=== PATIENT | female | born 1955 | race African-American/Black ===

== ENCOUNTER 2020-04-09 11:25 | Inpatient (IN) | payer MEDICARE, MEDICAID, SELFPAY ==
[2020-04-09] VITALS (10 sets, daily range): BP systolic 121–181; BP diastolic 60–72; PULSE 83–106; RESP 14–22; TEMP 36.3–36.8; O2SAT 97–100; BMI 18.7
--- NOTE | ~2020-04-09 | XR_ITS ---
XR chest 2V 04/14/2020 08:27 Indication: Pneumonia Procedure: AP and lateral views of the chest Comparison: 04/12/2020 Findings: Patchy bilateral airspace disease. Small pleural effusions. Large bore central venous ely ter tip in SVC. The lungs are hyperinflated which is consistent with, but not diagnostic of chronic o bstructive pulmonary disease. There is atherosclerosis. Impression: 1: Patchy bilateral airspace disease, compatible with pneumonia. 2: Small pleural effusions. Reviewed, dictated and finalized at location A. STANT READING TEACHER Impression: 1: Patchy bilateral airspace disease, compatible with pneumonia. 2: Small pleural effusions.
--- NOTE | ~2020-04-09 | NM_ITS ---
EXAMINATION: NM pulmonary perfusion DATE: 04/10/2020 11:26 INDICATION: Chest pain TECHNIQUE: 5.5 mCi Tc-99m MAA was administered intravenously for perfusion images. Scintigraphic imag es of the chest were obtained. COMPARISON: None FINDINGS: Perfusion images show normal perfusion. IMPRESSION: 1. Low probability for pulmonary embolism. Reviewed, dictated and finalized at location A. ESSOR OF FINE ART
--- NOTE | ~2020-04-09 | XR_ITS ---
XR chest 2V DATE: 04/12/2020 09:13 INDICATION: Pneumonia. Chest pain. TECHNIQUE: AP and lateral views COMPARISON: April 09, 2020 portable AP chest at 1234 hours FINDINGS: Right internal jugular central venous catheter tip near superior cavoatrial junction. Heart size within normal limits. Aortic arch calcification. There are infiltrates and/atelectasis in the lower lung zones, left greater than right. No pleural effusion or pulmonary vascular congestion or pneumothorax is evident. IMPRESSION: Bilateral infiltrate and/or atelectasis in the lower lung zones, left greater than right Reviewed, dictated and finalized at location A. MODYNAMICS TEACHER IMPRESSION: Bilateral infiltrate and/or atelectasis in the lower lung zones, le ft greater than right
--- NOTE | ~2020-04-09 | XR_ITS ---
EXAMINATION: XR chest 1V portable INDICATION: Chest pain TECHNIQUE: Portable AP chest at 1234 hours COMPARISON: None available FINDINGS: There is a large bore right internal jugular catheter ending with its tip at the superior c avoatrial junction. The cardiomediastinal silhouette is normal. There is mild diffuse interstitial pa ttern. Small pleural effusions are suggested. No pneumothorax is identified. There is calcified ather osclerosis. Minimal airspace opacities are present in the lung bases. IMPRESSION: 1. Likely mild pulmonary edema. 2. Small pleural effusions. 3. Minimal bibasilar airspace opacities, likely atelectasis. Reviewed, dictated and finalized at location A. TH PHYSICS TECHNICIAN
--- NOTE | ~2020-04-09 | US_ITS ---
EXAMINATION: US abdomen limited DATE: 04/11/2020 10:47 INDICATION: Pancreatitis TECHNIQUE: Multiple grayscale and Doppler ultrasound images of the abdomen were obtained. COMPARISON: None FINDINGS: Pancreas is normal in appearance. Liver has normal echogenicity and contour, with a smooth surface. N o liver lesion identified. No intrahepatic biliary duct dilation suspected. Portal venous flow was se en in the hepatopetal, normal direction and has normal Doppler waveform. The gallbladder is normal in appearance. There is no cholelithiasis. The common bile duct measures 6 mm, which is normal in whic h tapers distally. The pancreas with no evident obstructing choledocholithiasis. Sonographic García s ign was reported as negative by the beauty parlor cleaner. There is increased echogenicity within the visualize d right kidney consistent with medical renal disease. No hydronephrosis. Visualized proximal to mid i nferior vena cava is normal. Atherosclerotic calcifications along the visualized normal caliber proxi mal abdominal aorta. Small amount of ascites in the right upper quadrant. IMPRESSION: 1. Small amount of ascites in the right upper quadrant. 2. Increased right renal cortical echogenicity consistent with medical renal disease. Reviewed, dictated and finalized at location A. NING SPECIALIST IMPRESSION: 1. Small amount of ascites in the right upper quadrant. 2. Increased right renal cortical echogenicity consistent with medical renal di sease.
--- NOTE | ~2020-04-09 | US_ITS ---
EXAMINATION: US venous doppler [facility] DATE: 04/10/2020 11:54 INDICATION: Chest pain TECHNIQUE: Ordaz scale images without and with compression and Doppler images of the bilateral lower e xtremity veins were obtained. COMPARISON: None FINDINGS: The right common femoral vein, profunda femoral vein, femoral vein, popliteal vein, peroneal trunk, p osterior tibial veins, and greater saphenous vein are patent. The left common femoral vein, profunda femoral vein, femoral vein, popliteal vein, peroneal trunk, po sterior tibial veins, and greater saphenous vein are patent. IMPRESSION: 1. Patent bilateral lower extremity veins. No evidence of deep venous thrombosis. Reviewed, dictated and finalized at location A. ATIONS MANAGER IMPRESSION: 1. Patent bilateral lower extremity veins. No evidence of deep venous thrombosi s.
--- NOTE | 2020-04-09 11:35 | ECG_ITS ---
Measurements Intervals [place] Rate: 94 P: 90 [place]: 139 QRS: 70 QRSD: 76 T: 91 QT: 380 QTc: 476 Interpretive Statements SINUS RHYTHM BORDERLINE ST-T WAVE ABNORMALITY- HIGH LATERAL LEADS BASELINE WANDER- I, II, AVR, AVL BORDERLINE ECG Electronically Signed On 04-09-2020 11:52:22 BROKERAGE COORDINATOR by Pineda Worthington D.O.
--- NOTE | 2020-04-09 11:43 | ED.GENADULT ---
HPI - General Adult General Chief complaint: Chest Pain Stated complaint: CP/SOB Time Seen by Provider: 04/09/20 11:39 History of Present Illness HPI narrative: Patient is a 64-year-old female who presents the emergency department with chief complaint of chest pain. The patient reports that she was undergoing dialysis today and while the dialysis machine was running she started to get tightness feeling in her mid chest. Patient states this is the second time she has had dialysis reports that she was recently discharged from the hospital. The patient states that she had no shortness of breath denies diaphoresis denies radiation of the pain. Related Data Home Medications Medication Instructions Recorded Confirmed acetaminophen 325 mg PO ONCE PRN 04/09/20 04/09/20 amlodipine 10 mg PO DAILY 04/09/20 04/09/20 atorvastatin 40 mg PO DAILY 04/09/20 04/09/20 gabapentin 100 mg PO HS 04/09/20 04/09/20 hydralazine 50 mg PO TID 04/09/20 04/09/20 insulin lispro 3 unit SUBCUT DAILY 04/09/20 04/09/20 lidocaine 1 applic TOPICAL BID 04/09/20 04/09/20 lisinopril 20 mg PO BID 04/09/20 04/09/20 nitroglycerin 1 patch TRANSDERMAL DAILY 04/09/20 04/09/20 vancomycin 125 mg PO Q6H 04/09/20 04/09/20 Allergies Allergy/AdvReac Type Severity Reaction Status Date / Time No Known Allergies Allergy Verified 04/09/20 12:05 Review of Systems Review of Systems: Narrative: A 10 system review of systems was completed on the patient and is negative except for what is stated in the HPI. Nursing and ancillary documentation was reviewed. PMFSH Comments Past medical history is significant for end-stage renal on dialysis Social history the patient is currently at a nursing facility Exam Narrative: Exam Narrative: GENERAL: Well-appearing, well-nourished, and in no acute distress. HEAD: Normocephalic, atraumatic. EYES: PERRLA and EOMI. ENT: Nares clear, no rhinorrhea or epistaxis. Mucous membranes moist. NECK: Supple. CHEST: Clear to auscultation. No respiratory distress. Patient has a right sided tunneled IJ dialysis catheter HEART: Regular rate and rhythm. No murmur heard. Normal peripheral pulses. ABDOMEN: Soft, nontender, nondistended, normal active bowel sounds. EXTREMITIES: Normal range of motion. No edema. Patient has multiple fingertips that are black and consistent with prior embolic events. SKIN: Warm, dry, no rash. NEURO: No focal deficits. Alert and oriented x3. PSYCH: Normal mood and affect. Course Vital Signs Vital signs: Vital Signs Temperature 36.6 C 04/09/20 11:49 Pulse Rate 97 04/09/20 11:49 Respiratory Rate 22 H 04/09/20 11:49 Blood Pressure 181/68 H 04/09/20 11:49 Pulse Oximetry 97 04/09/20 11:49 Temperature 36.6 C 04/09/20 11:49 Pulse Rate 97 04/09/20 11:49 Respiratory Rate 22 H 04/09/20 11:49 Blood Pressure 181/68 H 04/09/20 11:49 Pulse Oximetry 97 04/09/20 11:49 Medical Decision Making Vital Signs Vital Signs: Vital Signs Temperature 36.6 C 04/09/20 11:49 Pulse Rate 97 04/09/20 11:49 Respiratory Rate 22 H 04/09/20 11:49 Blood Pressure 181/68 H 04/09/20 11:49 Pulse Oximetry 97 04/09/20 11:49 Temperature 36.6 C 04/09/20 11:49 Pulse Rate 97 04/09/20 11:49 Respiratory Rate 22 H 04/09/20 11:49 Blood Pressure 181/68 H 04/09/20 11:49 Pulse Oximetry 97 04/09/20 11:49 Lab Data Result diagrams: 04/09/20 11:55 04/09/20 11:55 Labs: Lab Results 04/09/20 04/09/20 04/09/20 Range/Units 11:55 11:55 11:55 WBC 16.3 H (4.5-10.0) K/mm3 RBC 3.37 L (4.2-5.4) M/mm3 Hgb 9.8 L (12.0-15.0) g/dL Hct 29.6 L (37.0-47.0) % MCV 87.8 (80-100) fl MCH 29.1 (26-34) pg MCHC 33.1 (32-36) g/dl RDW 19.8 H (11.5-14.5) % Plt Count 403 H (150-375) k/mm3 MPV 10.7 H (7.4-10.4) fl Immature Gran % (Auto) 1.5 H (0-0.5) % Neut % (Auto) 79.4 H (45.5-73.1) % Lymph % (Auto) 6.8 L (18
[2020-04-09 12:01] LABS: Basophils Absolute Auto 0.1 K/mm3 (0.0-0.1); Basophils Percent Auto 0.4 % (0.2-1.2); Eosinophils Absolute Auto 0.1 K/mm3 (0-0.3); Eosinophils Percent Auto 0.6 % (0-4.4); Hematocrit 29.6 % (37.0-47.0); Hemoglobin 9.8 g/dL (12.0-15.0); Immature Granulocyte Absolute 0.25 K/mm3 (0.00-0.031); Immature Granulocyte Percent A 1.5 % (0-0.5); Lymphocytes Percent Auto 6.8 % (18.3-44.2); Mean Corpuscular HGB Conc 33.1 g/dl (32-36); Mean Corpuscular Hemoglobin 29.1 pg (26-34); Mean Corpuscular Volume 87.8 fl (80-100); Mean Platelet Volume 10.7 fl (7.4-10.4); Monocytes Absolute Auto 1.8 K/mm3 (0.1-0.6); Monocytes Percent Auto 11.3 % (2.6-8.5); Neutrophils Absolute Auto 12.9 K/mm3 (1.3-6.7); Neutrophils Percent Auto 79.4 % (45.5-73.1); Platelet Count Result 403 k/mm3 (150-375); Red Blood Count 3.37 M/mm3 (4.2-5.4); Red Cell Distribution Width 19.8 % (11.5-14.5); White Blood Count 16.3 K/mm3 (4.5-10.0)
[2020-04-09 12:11] LABS: INR 0.9; Partial Thromboplastin Time 28.7 SECONDS (22.3-36.8); Prothrombin Time 12.2 Seconds (11.1-14.7)
[2020-04-09 12:14] LABS: Alanine Aminotransferase 37 U/L (4-35); Albumin Level 2.8 g/dL (3.5-5.1); Alkaline Phosphatase 490 U/L (38-126); Anion Gap 5 mmol/L (8-16); Aspartate Amino Transferase 63 U/L (14-36); Bilirubin,Total 0.5 mg/dL (0.2-1.3); Blood Urea Nitrogen 18 mg/dL (7-17); Calcium 8.2 mg/dL (8.4-10.2); Carbon Dioxide 28 mmol/L (22-30); Chloride 103 mmol/L (98-107); Estimated CRCL calculation 16 ml/min; Estimated Glomerular Filt Rate 25; Glucose 344 mg/dL (65-105); Lipase 405 U/L (23-300); Potassium 3.4 mmol/L (3.4-5.0); Sodium 136 mmol/L (137-145)
[2020-04-09] MEDS: ONDANSETRON INJ 4 MG/2 ML VIAL IV PUSH (12:17)
[2020-04-09] MEDS: MORPHINE SULFATE (*CRX) 4 MG/ML INJ IV PUSH (12:18)
[2020-04-09] MEDS: NITROGLYCERIN SL 0.4 MG TABLET SUBLINGUAL (12:19)
[2020-04-09 12:26] LABS: Troponin I 0.013 ng/mL (0.000-0.034)
[2020-04-09 12:35] LABS: Lactic Acid Reflex 1.6 mmol/L (0.7-2.1)
--- NOTE | 2020-04-09 13:23 | PC.NURSE ---
Pt denied lunch tray. sitter at bedside
[2020-04-09 14:43] LABS: Add Urine Microscopic? YES; Appearance Urine Clear (Clear); Bilirubin Urine Negative (Negative); Blood Urine Negative (Negative); Color Urine Yellow (Yellow); Glucose Urine UA 3+ mg/dL (Negative); Ketones Urine Negative (Negative); Leukocyte Esterase Ur Negative LEU/UL (Negative); Nitrate Urine Negative (Negative); Protein Urine 3+ mg/dL (Negative); RBC Urine 0-2 /hpf (0-2); Squamous Epithelial Cell Urine Rare /hpf (Few); Urobilinogen Urine Negative mg/dL (<2.0); WBC Urine 0-3 /hpf
--- NOTE | 2020-04-09 16:13 | ADMGEN ---
This patient, Jeny Webb, was admitted to IMU Room 205-01. Patient/family oriented to hospital policies and general routines including ID bracelet, bed and alarms, visiting hours, pain management, procedures, bathroom and other care routines, personal items, smoking policy, room service/diet, and visiting hours. Information on how to activate the Rapid Response Team has been discussed. Patient/Family are encouraged to report perceived risks to care and to ask questions if they do not understand what they are told or what they should do.
--- NOTE | 2020-04-09 17:53 | PM.IMHP ---
H&P: HPI History of Present Illness Date/Time: 04/09/20 17:53 Chief Complaint: Chest pain Narrative: Jeny Webb is a 64 year old female who came to the emergency room today with complaints of chest pain. The patient does not recall having any history of any heart disease. The patient is from [facility]. She was brought there after a long extensive stay at [facility] where she had been intubated for quite some time due to COVID. She had been on vasopressors and has necrotic tissue to the tips of her fingers from being on vasopressors. Today the patient was at to be the dialysis when she reported that she had some left chest discomfort. When I palpated her midsternal chest she stated that the pain was reproducible. She has not done any strenuous work. She was just lying there are at dialysis when she started to have this chest pain. The dialysis machine was running when the patient complained mid sternal chest pain. She had no fever chills. She had no shortness of breath. No diaphoresis no radiation of discomfort. Patient does have a history of having hypertension as well. White count was noted to be 16.3. Platelet count 403. Her creatinine is 2.0 and she goes to dialysis on Monday. Patient recently started dialysis since she had an extended illness due to COVID [address] [facility]. Her liver enzymes are elevated although I suspect that this could be related to her covid 19 illness. Was read as likely mild pulmonary edema. Small pleural effusions. Minimal bibasilar airspace opacities likely atelectasis. Her blood sugar was noted to be 344. Her 1st troponin was found to be negative. Sinus rhythm borderline ST T wave abnormalities. Patient was given Zofran and morphine in the emergency room. On the date of service of 04/09/2020. Review of Systems Review of Systems: All systems reviewed & are unremarkable except as noted in HPI and below Constitutional: Constitutional: Reports as per HPI and Reports no additional constitutional complaints Eyes: Eyes: Reports as per HPI and Reports no additional eye complaints ENT: Reports system reviewed and no additional complaints, except as documented and Reports Normal hearing present Cardiovascular: Cardiovascular: Reports no additional cardiovascular complaints Respiratory: Respiratory: Reports no additional respiratory complaints and Reports no additional respiratory complaints Gastrointestinal: Gastrointestinal: Reports as per HPI and Reports no additional gastrointestinal complaints Musculoskeletal: Musculoskeletal: Reports no additional musculoskeletal complaints Integumentary/Breasts: Skin/Breast: Reports system reviewed and no additional complaints, except as docu and Reports as per HPI Neurologic: Reports system reviewed and no additional complaints, except as documented, Reports as per HPI and Reports Normal hearing present Psychiatric: Psychiatric: Reports no additional psychiatric complaints and Reports as per HPI Endocrine: Endocrine: Reports no additional endocrine complaints Hematologic/Lymphatic: Hematologic/Lymphatic: Reports no additional hematologic/lymphatic complaints Allergic/Immunologic: Allergic/Immunologic: Reports no additional allergic/immunologic complaints [facility] Past Medical History Medical History (Updated 04/09/20 @ 18:28 by Vesta Robbins NP) Asthma As a child COVID-19 virus infection Diabetes History of CVA (cerebrovascular accident) Hyperlipidemia Hypertension Neuropathy Surgical History Surgical History (Updated 04/09/20 @ 18:06 by Vesta Robbins NP) H/O tubal ligation History of tonsillectomy Family History Family History (Updated 04/09/20 @ 18:12 by Vesta Robbins NP) Unknown Family history unknown Other Unknown family medical history Social History Social History (Updated 04/09/20 @ 18:14 by Vesta Robbins NP) Social History:
[2020-04-09 18:12] LABS: Troponin I 0.012 ng/mL (0.000-0.034)
[2020-04-09 18:51] LABS: Glucose Point of Care 221 (65-105)
[2020-04-09] MEDS: hydrALAZINE HCL 50 MG TABLET PO (18:54)
[2020-04-09] MEDS: diphenhydrAMINE HCl CAP 25 MG CAPSULE PO (18:55)
[2020-04-09] MEDS: ATORVASTATIN 40 MG TABLET PO (20:29)
[2020-04-09] MEDS: FAMOTIDINE 20 MG/2 ML VIAL IV PUSH (20:29)
[2020-04-09] MEDS: levETIRAcetam ORAL SOL 500 MG/5 ML UDC PO (20:29)
[2020-04-09] MEDS: HEPARIN SODIUM 5,000 UNITS/ML VIAL 5000 UNITS SUB-Q (20:31)
[2020-04-09] MEDS: NITROGLYCERIN OINTMENT 1 INCH DOSE TRANSDERM (20:31)
[2020-04-09 20:39] LABS: Troponin I < 0.012 ng/mL (0.000-0.034)
[2020-04-09 20:58] LABS: Glucose Point of Care 276 (65-105)
[2020-04-10] VITALS (10 sets, daily range): BP systolic 106–152; BP diastolic 46–66; PULSE 82–116; RESP 14–18; TEMP 36.3–36.9; O2SAT 98–100; BMI 18.3
--- NOTE | 2020-04-10 | ECHO_ITS ---
Patient Info Name: Jeny Webb Age: 64 years : 1955 Gender: Female Ht: 63 in Wt: 106 lbs BSA: 1.46 m2 HR: 105 bpm BP: 147 / 59 mmHg Heart Rhythm: Sinus Rhythm, Tachycardia Technical Quality: Excellent Exam Date: 04/10/2020 10:18 AM Exam Location: [facility] Patient Status: Inpatient Admit Date: 04/09/2020 Staff Ordering Physician: Vesta Robbins NP Speech Communication Professor: Mo Cunha RDCS Attending Provider: Otilio Estevez MD Referring Physician: Itzel PADILLA; Exam Type: CA echo doppler color flow Study Info Indications R07.9 - Chest pain, unspecified Complete two-dimensional, color flow and Doppler transthoracic echocardiogram is performed. Strain analysis performed. History/Risk Factors Chest pain; ESRD, HTN, DM2. Summary 1. Complete two-dimensional, color flow and Doppler transthoracic echocardiogram is performed. 2. Left ventricular chamber dimension is normal. 3. Left ventricular systolic function is hyperdynamic, estimated at >70%. 4. There is moderately increased left ventricular wall thickness. 5. Ventricular septum is sigmoid shaped. No LVOT obstruction. 6. The left ventricular diastolic function is grade I diastolic dysfunction. 7. E/e' 16 is elevated. 8. Global longitudinal strain is abnormal at -15.2%. 9. Left atrial chamber dimension is moderately enlarged. 10. The mitral valve has severely calcified annulus. 11. Mild systolic anterior motion of mitral valve. 12. There is mild mitral valve regurgitation. 13. There is trace tricuspid valve regurgitation. 14. Mild pulmonary hypertension, estimated pulmonary arterial systolic pressure is 46 mmHg. Left Ventricle E/e' 16 is elevated. Global longitudinal strain is abnormal at -15.2%. Ventricular septum is sigmoid shaped. No LVOT obstruction. Left ventricular chamber dimension is normal. Left ventricular systolic function is hyperdynamic, estimated at >70%. There is moderately increased left ventricular wall thickness. The left ventricular diastolic function is grade I diastolic dysfunction. Right Ventricle Right ventricular chamber dimension is normal. Right ventricular systolic function is normal. Left Atria Left atrial chamber dimension is moderately enlarged. Right Atria Right atrial chamber dimension is normal. Aortic Valve The aortic valve is trileaflet. There is no aortic valve stenosis. There is no aortic valve regurgitation. Pulmonic Valve There is no pulmonic regurgitation. Mitral Valve The mitral valve has severely calcified annulus. Mild systolic anterior motion of mitral valve. There is no mitral valve stenosis. There is mild mitral valve regurgitation. Tricuspid Valve There is trace tricuspid valve regurgitation. Mild pulmonary hypertension, estimated pulmonary arterial systolic pressure is 46 mmHg. Pericardium/Pleural There is no pericardial effusion. Inferior Vena Cava Normal inferior vena cava with >50% collapse upon inspiration consistent with normal right atrial pressure, 5 mmHg. Aorta The aortic root size at the sinus of Valsalva is normal. Left Ventricular Outflow Tract Name Value Normal LVOT 2D LVOT Diameter 1.8 cm
[2020-04-10 05:08] LABS: Basophils Absolute Auto 0.1 K/mm3 (0.0-0.1); Basophils Percent Auto 0.5 % (0.2-1.2); Eosinophils Absolute Auto 0.2 K/mm3 (0-0.3); Eosinophils Percent Auto 1.2 % (0-4.4); Hematocrit 29.2 % (37.0-47.0); Hemoglobin 9.2 g/dL (12.0-15.0); Immature Granulocyte Percent A 1.5 % (0-0.5); Lymphocytes Absolute Auto 1.32 K/mm3 (0.9-3.2); Mean Corpuscular HGB Conc 31.5 g/dl (32-36); Mean Corpuscular Hemoglobin 28.4 pg (26-34); Mean Corpuscular Volume 90.1 fl (80-100); Mean Platelet Volume 10.3 fl (7.4-10.4); Monocytes Absolute Auto 1.6 K/mm3 (0.1-0.6); Monocytes Percent Auto 12.2 % (2.6-8.5); Neutrophils Absolute Auto 9.9 K/mm3 (1.3-6.7); Neutrophils Percent Auto 74.6 % (45.5-73.1); Platelet Count Result 381 k/mm3 (150-375); Red Blood Count 3.24 M/mm3 (4.2-5.4); Red Cell Distribution Width 19.8 % (11.5-14.5); White Blood Count 13.2 K/mm3 (4.5-10.0)
[2020-04-10 05:19] LABS: Hemoglobin A1C 5.9 % (<5.7)
[2020-04-10 05:21] LABS: Alanine Aminotransferase 34 U/L (4-35); Albumin Level 2.7 g/dL (3.5-5.1); Alkaline Phosphatase 408 U/L (38-126); Anion Gap 5 mmol/L (8-16); Aspartate Amino Transferase 54 U/L (14-36); Bilirubin,Total 0.4 mg/dL (0.2-1.3); Blood Urea Nitrogen 24 mg/dL (7-17); CRP 0.6 mg/dL (<1.0); Calcium 8.6 mg/dL (8.4-10.2); Carbon Dioxide 27 mmol/L (22-30); Chloride 107 mmol/L (98-107); Estimated CRCL calculation 14 ml/min; Estimated Glomerular Filt Rate 21; Glucose 217 mg/dL (65-105); Lipase 355 U/L (23-300); Magnesium 1.5 mg/dL (1.6-2.3); Potassium 3.9 mmol/L (3.4-5.0); Sodium 139 mmol/L (137-145)
[2020-04-10 06:20] LABS: Hepatitis B Surface Antigen Negative (Negative)
[2020-04-10 06:25] LABS: HAV RESULT Negative (Negative); Hepatitis B Core IgM Result Negative (Negative)
[2020-04-10 06:44] LABS: Hepatitis C Virus Antibody Reactive (Negative)
[2020-04-10 07:04] LABS: Lactic Acid Reflex 1.1 mmol/L (0.7-2.1)
[2020-04-10 07:22] LABS: Glucose Point of Care 236 (65-105)
[2020-04-10] MEDS: lisinopriL 20 MG TABLET PO (07:35)
[2020-04-10] MEDS: INSULIN ASPART (*BKC) 100 UNITS/ML SUB-Q ×3 (07:35→17:00)
[2020-04-10] MEDS: ASPIRIN 81 MG ENTERIC TABLET PO (07:36)
[2020-04-10] MEDS: HEPARIN SODIUM 5,000 UNITS/ML VIAL 5000 UNITS SUB-Q ×2 (07:36→20:22)
[2020-04-10] MEDS: hydrALAZINE HCL 50 MG TABLET PO ×2 (07:36→12:36)
[2020-04-10] MEDS: FAMOTIDINE 20 MG/2 ML VIAL IV PUSH ×2 (07:36→20:22)
[2020-04-10] MEDS: amLODIPine BESYLATE 5 MG TABLET 10 MG PO (07:36)
[2020-04-10] MEDS: GABAPENTIN 100 MG CAPSULE PO ×3 (07:36→17:04)
[2020-04-10] MEDS: levETIRAcetam ORAL SOL 500 MG/5 ML UDC PO ×2 (07:37→20:24)
--- NOTE | 2020-04-10 09:25 | PM.IMPN ---
Progress Note: A&P Assessment and Plan (1) Elevated liver enzymes: Code(s): R74.8 - Abnormal levels of other serum enzymes Status: Acute Assessment and Plan: Workup is in progress. Will also order ultrasound liver gallbladder pancreas to rule out gallstones and pancreatitis. (2) Hyperlipidemia: Code(s): E78.5 - Hyperlipidemia, unspecified Status: Chronic Assessment and Plan: Stable on medications. (3) Diabetes: Code(s): E11.9 - Type 2 diabetes mellitus without complications Status: Chronic Assessment and Plan: Will continue current treatment and monitor glucose. (4) Hypertension: Code(s): I10 - Essential (primary) hypertension Status: Chronic Assessment and Plan: Stable on medications. (5) Chest pain: Qualifiers: Chest pain type: unspecified Qualified Code(s): R07.9 - Chest pain, unspecified Code(s): R07.9 - Chest pain, unspecified Status: Acute Assessment and Plan: Atypical chest pain but will check troponin and monitor enzymes. (6) ESRD (end stage renal disease): Code(s): N18.6 - End stage renal disease Status: Chronic Assessment and Plan: Will continue dialysis. (7) Pneumonia: Code(s): J18.9 - Pneumonia, unspecified organism Status: Acute Assessment and Plan: Will do blood culture and start IV antibiotic. Subjective Date/time seen: 04/10/20 09:25 Interval history: Patient was seen during the morning rounds today. Patient is feeling better. Denies any shortness of breath or chest pain. No fever no chills. Review of Systems Review of Systems: All systems reviewed & are unremarkable except as noted in HPI and below Constitutional: Constitutional: Reports as per HPI Eyes: Eyes: Reports as per HPI ENT: Reports system reviewed and no additional complaints, except as documented Cardiovascular: Cardiovascular: Reports as per HPI Respiratory: Respiratory: Reports as per HPI Gastrointestinal: Gastrointestinal: Reports as per HPI Musculoskeletal: Musculoskeletal: Reports no additional musculoskeletal complaints Neurologic: Reports system reviewed and no additional complaints, except as documented and Reports as per HPI Psychiatric: Psychiatric: Reports no additional psychiatric complaints and Reports as per HPI Endocrine: Endocrine: Reports as per HPI Exam Const: General: cooperative and no acute distress Orientation/consciousness: oriented to person, oriented to place, oriented to time and patient oriented x3 HENMT: Head: normal to inspection Ears: hearing grossly normal bilaterally and external ears normal General nose exam: Normal external nose present Face and sinus: normal facial exam Mouth: Yes Normal oral and palatal mucosa present Eyes: General: appearance normal, both eyes and all related structures Neck: Neck: normal visual inspection and full ROM Chest: Chest palpation & inspection: normal inspection of the chest and normal palpation of entire chest wall Resp: Effort & Inspection: normal respiratory effort Auscultation: clear to auscultation bilaterally Cardio: Jugular venous distension: no JVD Palpation: normal PMI Rate: regular rate Heart sounds: S1 normal heart sound present and S2 normal heart sound present GI: Inspection: normal to inspection GI Palp: No abdominal tenderness Neuro: General: oriented to person, oriented to place, oriented to time and patient oriented x3 Cranial nerves: Yes CN's II-XII intact bilaterally Speech: normal speech Gait exam (Neuro): Normal gait present Motor exam (neuro): 5/5 motor strength present throughout Sensory Exam: normal sensation Psych: Appearance: grossly normal Objective Data Vital Signs Vital Signs: Vital Signs - 24 hr 04/09/20 11:49 04/09/20 14:13 04/09/20 15:49 Temperature 36.6 C Pulse Rate 97 83 Respiratory Rate 22 H 14 20 Blood Pressure 181/68 H 121/66 122/72 Pu
[2020-04-10] MEDS: levoFLOXacin 250 MG/D5W 50 ML 250 MG/50 ML BAG 50 MG IVPB (09:57)
[2020-04-10 11:07] LABS: Troponin I < 0.012 ng/mL (0.000-0.034)
[2020-04-10 12:06] LABS: Glucose Point of Care 240 (65-105)
--- NOTE | 2020-04-10 13:27 | PCNSR ---
On 04/10/20, the student,Rosy Bonilla, provided care and completed [facility] documentation on this patient. I have reviewed the student's documentation and agree with the findings.
--- NOTE | 2020-04-10 14:45 | PC.NURSE ---
This patient, Jeny Webb, was received from IMU on 04/10/20 at 1440. Patient/family oriented to unit policies and routines
--- NOTE | 2020-04-10 14:53 | PC.NURSE ---
Patient downgraded to medical status, report given to Luma TEE. Patient trasferred to 346 via bed with belongings with bed at 1440.
--- NOTE | 2020-04-10 15:03 | P.CONNP_ITS ---
Assessment and Plan Assessment and plan (1) ARELIS (acute kidney injury): Code(s): N17.9 - Acute kidney failure, unspecified Status: Acute Assessment and Plan: * likely due to ATN (cardiac arrest, hemodynamic instability) and possibly COVID-19 from recent [facility] hospitalization * unfortunately, requiring renal replacement therapy/dialysis at this time * HD today * noted reasonably urine output -- possible renal recovery?? - depending how long she is hospitalized, consider checking 24 hour collection for CrCl/GFR (2) Chest pain: Qualifiers: Chest pain type: unspecified Qualified Code(s): R07.9 - Chest pain, unspecified Code(s): R07.9 - Chest pain, unspecified Status: Acute Assessment and Plan: * seems likely cardiac related * possible pleuritic in nature and due to pneumonia(?) * follow trend of symptoms (3) Pneumonia: Code(s): J18.9 - Pneumonia, unspecified organism Status: Acute Assessment and Plan: * on antibiotics * follow cultures (4) Elevated liver enzymes: Code(s): R74.8 - Abnormal levels of other serum enzymes Status: Acute Assessment and Plan: * were elevated during hospitalization at [facility] but trending down on discharge * possibly resolving shock liver from cardiac arrest * however, HCV+ so this may be part of the issues as well (5) Hypertension: Code(s): I10 - Essential (primary) hypertension Status: Chronic Assessment and Plan: * reasonable control at this time * follow hemodynamics (6) Diabetes: Code(s): E11.9 - Type 2 diabetes mellitus without complications Status: Chronic Assessment and Plan: * formal diagnosis(?) * issues with hyperglycemia during last hospitalization at [facility] * follow accuchecks * on SSI Greater than 20 minutes was spent in review of her extensive records from [facility] during her hospital stay during February 2020 with emphasis on the events that led to her need for renal replacement therapy/dialysis and evaluation done by the nephrologists there during this period of time. Will continue to follow. History of Present Illness Reason for Consult Consult date: 04/10/20 Reason for consult: acute renal failure (on dialysis) Chief Complaint Chief complaint: Chest Pain/ESRD History of Present Illness Narrative: The patient is a 64-year-old female with an extensive past medical history as outlined below who presented to [facility] Emergency room with complaints of chest pain. The patient was at her regularly scheduled dialysis treatment yesterday morning when apparently she developed the a for mentioned systems of chest pain. Howev er, on my discussion with her outpatient dialysis unit, they stated that the patient felt like she was having a stroke and when asked if she wanted to go to the emergency room, she replied yes and her dialysis treatment was terminated with subsequent transfer to the emergency room at [facility] for further evaluation. In any case, workup and evaluation in the emergency room demonstrated labs consistent with her history of acute kidney disease requiring dialysis and physical exam changes consistent with the history of her protracted hospitalization at [facility] prior to discharge. Her chest pain seemed to had subsided by the time of her arrival to the emergency room and was reproducible on palpation. She gave no other associated symptoms with regard to shortness of breath diaphoresis radiation of the pain, abdo
--- NOTE | 2020-04-10 15:03 | PM.CNNEP ---
Assessment and Plan Assessment and plan (1) ARELIS (acute kidney injury): Code(s): N17.9 - Acute kidney failure, unspecified Status: Acute Assessment and Plan: likely due to ATN (cardiac arrest, hemodynamic instability) and possibly COVID-[address] [facility] hospitalization unfortunately, requiring renal replacement therapy/dialysis at this time HD today noted reasonably urine output -- possible renal recovery?? - depending how long she is hospitalized, consider checking 24 hour collection for CrCl/GFR (2) Chest pain: Qualifiers: Chest pain type: unspecified Qualified Code(s): R07.9 - Chest pain, unspecified Code(s): R07.9 - Chest pain, unspecified Status: Acute Assessment and Plan: seems likely cardiac related possible pleuritic in nature and due to pneumonia(?) follow trend of symptoms (3) Pneumonia: Code(s): J18.9 - Pneumonia, unspecified organism Status: Acute Assessment and Plan: on antibiotics follow cultures (4) Elevated liver enzymes: Code(s): R74.8 - Abnormal levels of other serum enzymes Status: Acute Assessment and Plan: were elevated during hospitalization at [facility] but trending down on discharge possibly resolving shock liver from cardiac arrest however, HCV+ so this may be part of the issues as well (5) Hypertension: Code(s): I10 - Essential (primary) hypertension Status: Chronic Assessment and Plan: reasonable control at this time follow hemodynamics (6) Diabetes: Code(s): E11.9 - Type 2 diabetes mellitus without complications Status: Chronic Assessment and Plan: formal diagnosis(?) issues with hyperglycemia during last hospitalization at [facility] follow accuchecks on SSI Greater than 20 minutes was spent in review of her extensive records from [facility] during her hospital stay during February 2020 with emphasis on the events that led to her need for renal replacement therapy/dialysis and evaluation done by the nephrologists there during this period of time. Will continue to follow. History of Present Illness Reason for Consult Consult date: 04/10/20 Reason for consult: acute renal failure (on dialysis) Chief Complaint Chief complaint: Chest Pain/ESRD History of Present Illness Narrative: The patient is a 64-year-old female with an extensive past medical history as outlined below who presented to [facility] Emergency room with complaints of chest pain. The patient was at her regularly scheduled dialysis treatment yesterday morning when apparently she developed the a for mentioned systems of chest pain. However, on my discussion with her outpatient dialysis unit, they stated that the patient felt like she was having a stroke and when asked if she wanted to go to the emergency room, she replied yes and her dialysis treatment was terminated with subsequent transfer to the emergency room at [facility] for further evaluation. In any case, workup and evaluation in the emergency room demonstrated labs consistent with her history of acute kidney disease requiring dialysis and physical exam changes consistent with the history of her protracted hospitalization at [facility] prior to discharge. Her chest pain seemed to had subsided by the time of her arrival to the emergency room and was reproducible on palpation. She gave no other associated symptoms with regard to shortness of breath diaphoresis radiation of the pain, abdominal pain, nausea, vomiting, diarrhea...etc. Interestingly, her liver function tests were also elevated on routine testing and she did have a mildly elevated white blood cell count as well. Her initial troponins were negative and her EKG did not demonstrate any significant abnormalities. She was given Zofran as well as morphine in the emergency room and subsequent admitted the [facility]
[2020-04-10] MEDS: traMADol HCL (*CRX) 50 MG TABLET PO (16:59)
[2020-04-10 17:10] LABS: Glucose Point of Care 228 (65-105)
[2020-04-10] MEDS: ATORVASTATIN 40 MG TABLET PO (20:21)
[2020-04-10] MEDS: NITROGLYCERIN OINTMENT 1 INCH DOSE TRANSDERM (20:24)
[2020-04-10 22:15] LABS: Glucose Point of Care 300 (65-105)
[2020-04-11] VITALS (17 sets, daily range): BP systolic 102–143; BP diastolic 58–90; PULSE 80–110; RESP 14–18; TEMP 36–37.4; O2SAT 97–100
[2020-04-11 06:19] LABS: Hematocrit 27.9 % (37.0-47.0); Hemoglobin 8.7 g/dL (12.0-15.0); Mean Corpuscular HGB Conc 31.2 g/dl (32-36); Mean Corpuscular Hemoglobin 27.7 pg (26-34); Mean Corpuscular Volume 88.9 fl (80-100); Platelet Count Result 380 k/mm3 (150-375); Red Blood Count 3.14 M/mm3 (4.2-5.4); Red Cell Distribution Width 19.6 % (11.5-14.5); White Blood Count 13.1 K/mm3 (4.5-10.0)
[2020-04-11 06:36] LABS: Alanine Aminotransferase 30 U/L (4-35); Albumin Level 2.7 g/dL (3.5-5.1); Alkaline Phosphatase 409 U/L (38-126); Anion Gap 3 mmol/L (8-16); Aspartate Amino Transferase 45 U/L (14-36); Bilirubin,Total 0.4 mg/dL (0.2-1.3); Blood Urea Nitrogen 29 mg/dL (7-17); Calcium 8.4 mg/dL (8.4-10.2); Carbon Dioxide 29 mmol/L (22-30); Chloride 105 mmol/L (98-107); Estimated CRCL calculation 13 ml/min; Estimated Glomerular Filt Rate 18; Glucose 173 mg/dL (65-105); Potassium 3.8 mmol/L (3.4-5.0); Sodium 137 mmol/L (137-145)
[2020-04-11] MEDS: traMADol HCL (*CRX) 50 MG TABLET PO ×2 (07:51→15:25)
[2020-04-11] MEDS: NITROGLYCERIN OINTMENT 1 INCH DOSE TRANSDERM ×2 (08:00→20:01)
[2020-04-11] MEDS: GABAPENTIN 100 MG CAPSULE PO ×3 (08:01→17:44)
[2020-04-11] MEDS: ASPIRIN 81 MG ENTERIC TABLET PO (08:01)
[2020-04-11] MEDS: amLODIPine BESYLATE 5 MG TABLET 10 MG PO (08:01)
[2020-04-11] MEDS: LIDOCAINE 5% PATCH 1 PATCH TOPICAL (08:01)
[2020-04-11] MEDS: levETIRAcetam ORAL SOL 500 MG/5 ML UDC PO ×2 (08:02→20:00)
[2020-04-11] MEDS: FAMOTIDINE 20 MG/2 ML VIAL IV PUSH ×2 (08:02→20:00)
[2020-04-11] MEDS: HEPARIN SODIUM 5,000 UNITS/ML VIAL 5000 UNITS SUB-Q ×2 (08:02→20:00)
[2020-04-11] MEDS: lisinopriL 20 MG TABLET PO (08:03)
[2020-04-11 08:10] LABS: Glucose Point of Care 169 (65-105)
--- NOTE | 2020-04-11 09:24 | PM.IMPN ---
Progress Note: A&P Assessment and Plan (1) Elevated liver enzymes: Code(s): R74.8 - Abnormal levels of other serum enzymes Status: Acute Assessment and Plan: Workup is in progress. Will also order ultrasound liver gallbladder pancreas to rule out gallstones and pancreatitis. (2) Hyperlipidemia: Code(s): E78.5 - Hyperlipidemia, unspecified Status: Chronic Assessment and Plan: Stable on medications. (3) Diabetes: Code(s): E11.9 - Type 2 diabetes mellitus without complications Status: Chronic Assessment and Plan: Will continue current treatment and monitor glucose. (4) Hypertension: Code(s): I10 - Essential (primary) hypertension Status: Chronic Assessment and Plan: Stable on medications. (5) Chest pain: Qualifiers: Chest pain type: unspecified Qualified Code(s): R07.9 - Chest pain, unspecified Code(s): R07.9 - Chest pain, unspecified Status: Acute Assessment and Plan: Atypical chest pain but will check troponin and monitor enzymes. (6) ESRD (end stage renal disease): Code(s): N18.6 - End stage renal disease Status: Chronic Assessment and Plan: Will continue dialysis. (7) Pneumonia: Code(s): J18.9 - Pneumonia, unspecified organism Status: Acute Assessment and Plan: Will do blood culture and start IV antibiotic. Will repeat chest x-ray. Subjective Date/time seen: 04/11/20 09:24 Interval history: Patient was seen during the morning rounds today. Patient is feeling better slightly. Denies any shortness of breath or chest pain. No fever no chills. Review of Systems Review of Systems: All systems reviewed & are unremarkable except as noted in HPI and below Constitutional: Constitutional: Reports as per HPI Eyes: Eyes: Reports as per HPI ENT: Reports system reviewed and no additional complaints, except as documented Cardiovascular: Cardiovascular: Reports as per HPI Respiratory: Respiratory: Reports as per HPI Gastrointestinal: Gastrointestinal: Reports as per HPI Musculoskeletal: Musculoskeletal: Reports no additional musculoskeletal complaints Neurologic: Reports system reviewed and no additional complaints, except as documented and Reports as per HPI Psychiatric: Psychiatric: Reports no additional psychiatric complaints and Reports as per HPI Endocrine: Endocrine: Reports as per HPI Exam Const: General: cooperative and no acute distress Orientation/consciousness: oriented to person, oriented to place, oriented to time and patient oriented x3 HENMT: Head: normal to inspection Ears: hearing grossly normal bilaterally and external ears normal General nose exam: Normal external nose present Face and sinus: normal facial exam Mouth: Yes Normal oral and palatal mucosa present Eyes: General: appearance normal, both eyes and all related structures Neck: Neck: normal visual inspection and full ROM Chest: Chest palpation & inspection: normal inspection of the chest and normal palpation of entire chest wall Resp: Effort & Inspection: normal respiratory effort Auscultation: clear to auscultation bilaterally Cardio: Jugular venous distension: no JVD Palpation: normal PMI Rate: regular rate Heart sounds: S1 normal heart sound present and S2 normal heart sound present GI: Inspection: normal to inspection Neuro: General: oriented to person, oriented to place, oriented to time and patient oriented x3 Cranial nerves: Yes CN's II-XII intact bilaterally Speech: normal speech Gait exam (Neuro): Normal gait present Motor exam (neuro): 5/5 motor strength present throughout Sensory Exam: normal sensation Psych: Appearance: grossly normal Objective Data Vital Signs Vital Signs: Vital Signs - 24 hr 04/10/20 10:00 04/10/20 12:00 04/10/20 14:45 Temperature 36.9 C 36.9 C Pulse Rate 116 H 95 95 Respiratory Rate 14 16 Blood Pressure 137/65 129/46 L
[2020-04-11] MEDS: hydrALAZINE HCL 50 MG TABLET PO ×2 (12:16→17:44)
[2020-04-11 12:32] LABS: Glucose Point of Care 153 (65-105)
--- NOTE | 2020-04-11 13:18 | PC.NURSE ---
Patient to dialysis per bed. Report to NAY White.
--- NOTE | 2020-04-11 14:41 | P.PNNP_ITS ---
Progress Note: A&P Assessment and Plan (1) ARELIS (acute kidney injury): Code(s): N17.9 - Acute kidney failure, unspecified Status: Acute Assessment and Plan: * likely due to ATN (cardiac arrest, hemodynamic instability) and possibly COVID-19 from recent [facility] hospitalization * unfortunately, requiring renal replacement therapy/dialysis at this time * HD today * noted reasonably urine output -- possible renal recovery?? - depending how long she is hospitalized, consider checking 24 hour collection for CrCl/GFR (2) Chest pain: Qualifiers: Chest pain type: unspecified Qualified Code(s): R07.9 - Chest pain, unspecified Code(s): R07.9 - Chest pain, unspecified Status: Acute Assessment and Plan: * seems likely cardiac related * possible pleuritic in nature and due to pneumonia(?) * follow trend of symptoms (3) Pneumonia: Code(s): J18.9 - Pneumonia, unspecified organism Status: Acute Assessment and Plan: * on antibiotics * follow cultures (4) Elevated liver enzymes: Code(s): R74.8 - Abnormal levels of other serum enzymes Status: Acute Assessment and Plan: * were elevated during hospitalization at [facility] but trending down on discharge * possibly resolving shock liver from cardiac arrest * however, HCV+ so this may be part of the issues as well (5) Hypertension: Code(s): I10 - Essential (primary) hypertension Status: Chronic Assessment and Plan: * reasonable control at this time * follow hemodynamics (6) Diabetes: Code(s): E11.9 - Type 2 diabetes mellitus without complications Status: Chronic Assessment and Plan: * formal diagnosis(?) * issues with hyperglycemia during last hospitalization at [facility] * follow accu-checks * on SSI Will continue to follow. Subjective Date/time seen: 04/11/20 14:41 Tolerating dialysis at the time of my visit (seen on HD at 2:20PM); fluctuating mental status noted (hallucinations, contradicts herself with regard to acute complaints...etc); making reasonable urine output since admission with stability in respiratory status. Exam Narrative: Exam Narrative: General: WD/WN AA female in NAD Heart: normal S1 and S2; no rub Lungs: clear to auscultation Abdomen: soft, nontender, nondistended, positive bowel sounds Extremities: no cyanosis or clubbing; no edema Skin: warm and dry Objective Data Vital Signs Vital Signs: Vital Signs Temp Pulse Resp BP Pulse Ox 04/11/20 11:30 142/63 H 04/11/20 05:56 36.8 C 100 14 102/72 97 04/11/20 00:00 36.5 C 80 14 120/58 L 99 04/10/20 20:07 36.7 C 95 14 152/66 H 100 04/10/20 17:11 106/54 L 04/10/20 14:45 36.9 C 95 16 129/46 L 98 Intake/Output Intake/Output: Intake & Output 04/08/20 04/09/20 04/10/20 04/11/20 23:59 23:59 23:59 23:59 Intake Total 240 1630 240 Output Total 300 950 800 Balance -60 680 -560 Meds/Results Medications: Active Medications Generic Name Dose Route Start Last Admin Trade Name Freq PRN Reason Stop Dose Admin Amlodipine Besylate 10 mg 04/10/20 09:00 04/11/20 08:01 Amlodipine Besylate 5 Mg Tablet PO 10 mg DAILY VALDEMAR Administration
--- NOTE | 2020-04-11 14:41 | PM.PNNEP ---
Progress Note: A&P Assessment and Plan (1) ARELIS (acute kidney injury): Code(s): N17.9 - Acute kidney failure, unspecified Status: Acute Assessment and Plan: likely due to ATN (cardiac arrest, hemodynamic instability) and possibly COVID-19 from recent [facility] hospitalization unfortunately, requiring renal replacement therapy/dialysis at this time HD today noted reasonably urine output -- possible renal recovery?? - depending how long she is hospitalized, consider checking 24 hour collection for CrCl/GFR (2) Chest pain: Qualifiers: Chest pain type: unspecified Qualified Code(s): R07.9 - Chest pain, unspecified Code(s): R07.9 - Chest pain, unspecified Status: Acute Assessment and Plan: seems likely cardiac related possible pleuritic in nature and due to pneumonia(?) follow trend of symptoms (3) Pneumonia: Code(s): J18.9 - Pneumonia, unspecified organism Status: Acute Assessment and Plan: on antibiotics follow cultures (4) Elevated liver enzymes: Code(s): R74.8 - Abnormal levels of other serum enzymes Status: Acute Assessment and Plan: were elevated during hospitalization at [facility] but trending down on discharge possibly resolving shock liver from cardiac arrest however, HCV+ so this may be part of the issues as well (5) Hypertension: Code(s): I10 - Essential (primary) hypertension Status: Chronic Assessment and Plan: reasonable control at this time follow hemodynamics (6) Diabetes: Code(s): E11.9 - Type 2 diabetes mellitus without complications Status: Chronic Assessment and Plan: formal diagnosis(?) issues with hyperglycemia during last hospitalization at [facility] follow accu-checks on SSI Will continue to follow. Subjective Date/time seen: 04/11/20 14:41 Tolerating dialysis at the time of my visit (seen on HD at 2:20PM); fluctuating mental status noted (hallucinations, contradicts herself with regard to acute complaints...etc); making reasonable urine output since admission with stability in respiratory status. Exam Narrative: Exam Narrative: General: WD/WN AA female in NAD Heart: normal S1 and S2; no rub Lungs: clear to auscultation Abdomen: soft, nontender, nondistended, positive bowel sounds Extremities: no cyanosis or clubbing; no edema Skin: warm and dry Objective Data Vital Signs Vital Signs: Vital Signs Temp Pulse Resp BP Pulse Ox 04/11/20 11:30 142/63 H 04/11/20 05:56 36.8 C 100 14 102/72 97 04/11/20 00:00 36.5 C 80 14 120/58 L 99 04/10/20 20:07 36.7 C 95 14 152/66 H 100 04/10/20 17:11 106/54 L 04/10/20 14:45 36.9 C 95 16 129/46 L 98 Intake/Output Intake/Output: Intake & Output 04/08/20 04/09/20 04/10/20 04/11/20 23:59 23:59 23:59 23:59 Intake Total 240 1630 240 Output Total 300 950 800 Balance -60 680 -560 Meds/Results Medications: Active Medications Generic Name Dose Route Start Last Admin Trade Name Freq PRN Reason Stop Dose Admin Amlodipine Besylate 10 mg 04/10/20 09:00 04/11/20 08:01 Amlodipine Besylate 5 Mg Tablet PO 10 mg DAILY VALDEMAR Administration Aspirin 81 mg 04/10/20 09:00 04/11/20 08:01 Aspirin 81 Mg Enteric Tablet PO 81 mg DAILY VALDEMAR Administration Atorvastatin Calcium 40 mg 04/09/20 21:00 04/10/20 20:21 Atorvastatin 40 Mg Tablet PO 40 mg HS VALDEMAR Administration Dextrose 12.5 gm 04/09/20 18:27 Dextrose 50% 25 Gm/50 Ml Syringe IV PUSH PRN PRN Hypoglycemia Protocol Epoetin Giuseppe-epbx 10,000 units 04/11/20 19:13 Epoetin Giuseppe-Epbx 10,000 Units/Ml Vial IV PUSH 04/11/20 19:14 ONCE ONE Famotidine 20 mg 04/09/20 21:00 04/11/20 08:02 Famotidine 20 Mg/2 Ml Vial IV PUSH 20 mg Q12HR VALDEMAR Administration Gabapentin 100 mg 04/10/20 09:00 04/11/20 12:16 Gabapentin 100 Mg Capsule PO 100 mg
[2020-04-11] MEDS: EPOETIN ALFA-EPBX 10,000 UNITS/ML VIAL 10000 UNITS IV PUSH (16:55)
--- NOTE | 2020-04-11 17:41 | PC.NURSE ---
Pt returned from dialysis per bed. Report received from NAY White.
[2020-04-11 17:48] LABS: Glucose Point of Care 106 (65-105)
[2020-04-11] MEDS: ATORVASTATIN 40 MG TABLET PO (20:00)
[2020-04-11 21:21] LABS: Glucose Point of Care 210 (65-105)
[2020-04-12 05:33] LABS: Hematocrit 27.8 % (37.0-47.0); Hemoglobin 8.8 g/dL (12.0-15.0); Mean Corpuscular HGB Conc 31.7 g/dl (32-36); Mean Corpuscular Hemoglobin 28.2 pg (26-34); Mean Corpuscular Volume 89.1 fl (80-100); Mean Platelet Volume 10.5 fl (7.4-10.4); Platelet Count Result 363 k/mm3 (150-375); Red Blood Count 3.12 M/mm3 (4.2-5.4); Red Cell Distribution Width 19.1 % (11.5-14.5); White Blood Count 14.5 K/mm3 (4.5-10.0)
[2020-04-12 05:57] VITALS: BP 97/51; PULSE 88; RESP 12; TEMP 36.8; O2SAT 100
[2020-04-12 07:53] LABS: Glucose Point of Care 133 (65-105)
[2020-04-12] MEDS: levETIRAcetam ORAL SOL 500 MG/5 ML UDC PO ×2 (08:18→21:19)
[2020-04-12] MEDS: FAMOTIDINE 20 MG/2 ML VIAL IV PUSH ×2 (08:19→21:23)
[2020-04-12] MEDS: NITROGLYCERIN OINTMENT 1 INCH DOSE TRANSDERM ×2 (08:19→21:19)
[2020-04-12] MEDS: levoFLOXacin 250 MG/D5W 50 ML 250 MG/50 ML BAG 50 MG IVPB (08:19)
[2020-04-12] MEDS: lisinopriL 20 MG TABLET PO (08:19)
[2020-04-12] MEDS: LIDOCAINE 5% PATCH 1 PATCH TOPICAL (08:19)
[2020-04-12] MEDS: ASPIRIN 81 MG ENTERIC TABLET PO (08:19)
[2020-04-12] MEDS: HEPARIN SODIUM 5,000 UNITS/ML VIAL 5000 UNITS SUB-Q ×2 (08:20→21:23)
[2020-04-12] MEDS: amLODIPine BESYLATE 5 MG TABLET 10 MG PO (08:20)
[2020-04-12] MEDS: GABAPENTIN 100 MG CAPSULE PO ×3 (08:20→17:01)
[2020-04-12] MEDS: traMADol HCL (*CRX) 50 MG TABLET PO ×2 (08:25→21:39)
--- NOTE | 2020-04-12 10:09 | PM.IMPN ---
Progress Note: A&P Assessment and Plan (1) Elevated liver enzymes: Code(s): R74.8 - Abnormal levels of other serum enzymes Status: Acute Assessment and Plan: Workup is in progress. Will also order ultrasound liver gallbladder pancreas to rule out gallstones and pancreatitis. (2) Hyperlipidemia: Code(s): E78.5 - Hyperlipidemia, unspecified Status: Chronic Assessment and Plan: Stable on medications. (3) Diabetes: Code(s): E11.9 - Type 2 diabetes mellitus without complications Status: Chronic Assessment and Plan: Will continue current treatment and monitor glucose. (4) Hypertension: Code(s): I10 - Essential (primary) hypertension Status: Chronic Assessment and Plan: Stable on medications. (5) Chest pain: Qualifiers: Chest pain type: unspecified Qualified Code(s): R07.9 - Chest pain, unspecified Code(s): R07.9 - Chest pain, unspecified Status: Acute Assessment and Plan: Atypical chest pain but will check troponin and monitor enzymes. (6) ESRD (end stage renal disease): Code(s): N18.6 - End stage renal disease Status: Chronic Assessment and Plan: Will continue dialysis. (7) Pneumonia: Code(s): J18.9 - Pneumonia, unspecified organism Status: Acute Assessment and Plan: Will do blood culture and start IV antibiotic. Will repeat chest x-ray. WBC still high, added vancomycin. Subjective Date/time seen: 04/12/20 10:09 Interval history: Patient was seen during the morning rounds today. Patient is feeling better slightly. Denies any shortness of breath or chest pain. No fever no chills. No new complaints. Review of Systems Review of Systems: All systems reviewed & are unremarkable except as noted in HPI and below Constitutional: Constitutional: Reports as per HPI Eyes: Eyes: Reports as per HPI ENT: Reports system reviewed and no additional complaints, except as documented Cardiovascular: Cardiovascular: Reports as per HPI Respiratory: Respiratory: Reports as per HPI Gastrointestinal: Gastrointestinal: Reports as per HPI Musculoskeletal: Musculoskeletal: Reports no additional musculoskeletal complaints Neurologic: Reports system reviewed and no additional complaints, except as documented and Reports as per HPI Psychiatric: Psychiatric: Reports no additional psychiatric complaints and Reports as per HPI Endocrine: Endocrine: Reports as per HPI Exam Const: General: cooperative and no acute distress Orientation/consciousness: oriented to person, oriented to place, oriented to time and patient oriented x3 HENMT: Head: normal to inspection Ears: hearing grossly normal bilaterally and external ears normal General nose exam: Normal external nose present Face and sinus: normal facial exam Mouth: Yes Normal oral and palatal mucosa present Eyes: General: appearance normal, both eyes and all related structures Neck: Neck: normal visual inspection and full ROM Chest: Chest palpation & inspection: normal inspection of the chest and normal palpation of entire chest wall Resp: Effort & Inspection: normal respiratory effort Auscultation: clear to auscultation bilaterally Cardio: Jugular venous distension: no JVD Palpation: normal PMI Rate: regular rate Heart sounds: S1 normal heart sound present and S2 normal heart sound present GI: Inspection: normal to inspection Neuro: General: oriented to person, oriented to place, oriented to time and patient oriented x3 Cranial nerves: Yes CN's II-XII intact bilaterally Speech: normal speech Gait exam (Neuro): Normal gait present Motor exam (neuro): 5/5 motor strength present throughout Sensory Exam: normal sensation Psych: Appearance: grossly normal Objective Data Vital Signs Vital Signs: Vital Signs - 24 hr 04/11/20 11:30 04/11/20 14:05 04/11/20 14:15 Temperature 37.0 C Pulse Rate 85 97 Respiratory Ra
[2020-04-12 12:33] LABS: Glucose Point of Care 214 (65-105)
[2020-04-12] MEDS: INSULIN ASPART (*BKC) 100 UNITS/ML SUB-Q (12:33)
[2020-04-12 12:41] VITALS: BP 127/69
--- NOTE | 2020-04-12 13:54 | P.PNNP_ITS ---
Progress Note: A&P Assessment and Plan (1) ARELIS (acute kidney injury): Code(s): N17.9 - Acute kidney failure, unspecified Status: Acute Assessment and Plan: * likely due to ATN (cardiac arrest, hemodynamic instability) and possibly COVID-19 from recent [facility] hospitalization * unfortunately, requiring renal replacement therapy/dialysis at this time * HD yesterday without any fluid remocal * noted reasonably urine output -- possible renal recovery?? - check 24 hour collection for CrCl/GFR (2) Chest pain: Qualifiers: Chest pain type: unspecified Qualified Code(s): R07.9 - Chest pain, unspecified Code(s): R07.9 - Chest pain, unspecified Status: Acute Assessment and Plan: * seems likely cardiac related * possible pleuritic in nature and due to pneumonia(?) * follow trend of symptoms (3) Pneumonia: Code(s): J18.9 - Pneumonia, unspecified organism Status: Acute Assessment and Plan: * on antibiotics * follow cultures (4) Elevated liver enzymes: Code(s): R74.8 - Abnormal levels of other serum enzymes Status: Acute Assessment and Plan: * were elevated during hospitalization at [facility] but trending down on discharge * possibly resolving shock liver from cardiac arrest * however, HCV+ so this may be part of the issues as well (5) Hypertension: Code(s): I10 - Essential (primary) hypertension Status: Chronic Assessment and Plan: * reasonable control at this time * follow hemodynamics (6) Diabetes: Code(s): E11.9 - Type 2 diabetes mellitus without complications Status: Chronic Assessment and Plan: * formal diagnosis(?) * issues with hyperglycemia during last hospitalization at [facility] * follow accu-checks * on SSI Will continue to follow. Subjective Date/time seen: 04/12/20 13:54 She tolerated hemodialysis treatment yesterday without any significant issues or complaints; no other acute issues/complaints/events overnight or earlier this AM; continue to make reasonable urine output. Exam Narrative: Exam Narrative: General: WD/WN AA female in NAD Heart: normal S1 and S2; no rub Lungs: clear to auscultation Abdomen: soft, nontender, nondistended, positive bowel sounds Extremities: no cyanosis or clubbing; no edema Skin: warm and intact Objective Data Vital Signs Vital Signs: Vital Signs Temp Pulse Resp BP Pulse Ox 04/12/20 12:41 127/69 04/12/20 05:57 36.8 C 88 12 97/51 L 100 04/11/20 19:55 37.4 C 110 H 14 123/68 100 04/11/20 18:18 37.0 C 104 H 16 143/71 H 04/11/20 16:45 104 H 138/78 04/11/20 16:30 109 H 130/90 04/11/20 16:15 106 H 129/66 04/11/20 16:00 107 H 131/65 Intake/Output Intake/Output: Intake & Output 04/09/20 04/10/20 04/11/20 04/12/20 23:59 23:59 23:59 23:59 Intake Total 240 2200 535 3865 Output Total 870 799 8836 500 Balance -60 267 -4252 474 Meds/Results Medications: Active Medications Generic Name Dose Route Start Last Admin Trade Name Freq PRN Reason Stop Dose Admin Amlodipine Besylate 10 mg 04/10/20 09:00 04/12/20 08:20 Amlodipine Besylate 5 Mg Tablet PO 10 mg DAILY VALDEMAR Administration Aspirin
--- NOTE | 2020-04-12 13:54 | PM.PNNEP ---
Progress Note: A&P Assessment and Plan (1) ARELIS (acute kidney injury): Code(s): N17.9 - Acute kidney failure, unspecified Status: Acute Assessment and Plan: likely due to ATN (cardiac arrest, hemodynamic instability) and possibly COVID-19 from recent [facility] hospitalization unfortunately, requiring renal replacement therapy/dialysis at this time HD yesterday without any fluid remocal noted reasonably urine output -- possible renal recovery?? - check 24 hour collection for CrCl/GFR (2) Chest pain: Qualifiers: Chest pain type: unspecified Qualified Code(s): R07.9 - Chest pain, unspecified Code(s): R07.9 - Chest pain, unspecified Status: Acute Assessment and Plan: seems likely cardiac related possible pleuritic in nature and due to pneumonia(?) follow trend of symptoms (3) Pneumonia: Code(s): J18.9 - Pneumonia, unspecified organism Status: Acute Assessment and Plan: on antibiotics follow cultures (4) Elevated liver enzymes: Code(s): R74.8 - Abnormal levels of other serum enzymes Status: Acute Assessment and Plan: were elevated during hospitalization at [facility] but trending down on discharge possibly resolving shock liver from cardiac arrest however, HCV+ so this may be part of the issues as well (5) Hypertension: Code(s): I10 - Essential (primary) hypertension Status: Chronic Assessment and Plan: reasonable control at this time follow hemodynamics (6) Diabetes: Code(s): E11.9 - Type 2 diabetes mellitus without complications Status: Chronic Assessment and Plan: formal diagnosis(?) issues with hyperglycemia during last hospitalization at [facility] follow accu-checks on SSI Will continue to follow. Subjective Date/time seen: 04/12/20 13:54 She tolerated hemodialysis treatment yesterday without any significant issues or complaints; no other acute issues/complaints/events overnight or earlier this AM; continue to make reasonable urine output. Exam Narrative: Exam Narrative: General: WD/WN AA female in NAD Heart: normal S1 and S2; no rub Lungs: clear to auscultation Abdomen: soft, nontender, nondistended, positive bowel sounds Extremities: no cyanosis or clubbing; no edema Skin: warm and intact Objective Data Vital Signs Vital Signs: Vital Signs Temp Pulse Resp BP Pulse Ox 04/12/20 12:41 127/69 04/12/20 05:57 36.8 C 88 12 97/51 L 100 04/11/20 19:55 37.4 C 110 H 14 123/68 100 04/11/20 18:18 37.0 C 104 H 16 143/71 H 04/11/20 16:45 104 H 138/78 04/11/20 16:30 109 H 130/90 04/11/20 16:15 106 H 129/66 04/11/20 16:00 107 H 131/65 Intake/Output Intake/Output: Intake & Output 04/09/20 04/10/20 04/11/20 04/12/20 23:59 23:59 23:59 23:59 Intake Total 240 6429 581 6470 Output Total 089 755 0408 500 Balance -60 876 -9154 305 Meds/Results Medications: Active Medications Generic Name Dose Route Start Last Admin Trade Name Freq PRN Reason Stop Dose Admin Amlodipine Besylate 10 mg 04/10/20 09:00 04/12/20 08:20 Amlodipine Besylate 5 Mg Tablet PO 10 mg DAILY VALDEMAR Administration Aspirin 81 mg 04/10/20 09:00 04/12/20 08:19 Aspirin 81 Mg Enteric Tablet PO 81 mg DAILY VALDEMAR Administration Atorvastatin Calcium 40 mg 04/09/20 21:00 04/11/20 20:00 Atorvastatin 40 Mg Tablet PO 40 mg HS VALDEMAR Administration Dextrose 12.5 gm 04/09/20 18:27 Dextrose 50% 25 Gm/50 Ml Syringe IV PUSH PRN PRN Hypoglycemia Protocol Famotidine 20 mg 04/09/20 21:00 04/12/20 08:19 Famotidine 20 Mg/2 Ml Vial IV PUSH 20 mg Q12HR VALDEMAR Administration Gabapentin 100 mg 04/10/20 09:00 04/12/20 12:35 Gabapentin 100 Mg Capsule PO 100 mg TID VALDEMAR Administration Glucagon 1 mg 04/09/20 18:27 Glucagon For Inj 1 Mg Vial IM PRN PRN Hypoglycemia Protoc
[2020-04-12 16:46] LABS: Glucose Point of Care 129 (65-105)
[2020-04-12 19:54] VITALS: BP 149/50; PULSE 106; RESP 14; TEMP 37.2; O2SAT 95
[2020-04-12] MEDS: ATORVASTATIN 40 MG TABLET PO (21:23)
[2020-04-12 22:52] LABS: Glucose Point of Care 174 (65-105)
[2020-04-13 00:38] LABS: Hepatitis C RNA, Quant PCR 7870000 IU/mL
[2020-04-13] MEDS: traMADol HCL (*CRX) 50 MG TABLET PO ×2 (05:04→16:55)
[2020-04-13 06:10] LABS: Hematocrit 28.3 % (37.0-47.0); Mean Corpuscular HGB Conc 31.8 g/dl (32-36); Mean Corpuscular Hemoglobin 28.6 pg (26-34); Mean Corpuscular Volume 89.8 fl (80-100); Mean Platelet Volume 9.9 fl (7.4-10.4); Platelet Count Result 329 k/mm3 (150-375); Red Blood Count 3.15 M/mm3 (4.2-5.4); White Blood Count 10.6 K/mm3 (4.5-10.0)
[2020-04-13 06:24] LABS: Albumin Level 2.8 g/dL (3.5-5.1); Anion Gap 4 mmol/L (8-16); Blood Urea Nitrogen 21 mg/dL (7-17); Calcium 8.6 mg/dL (8.4-10.2); Carbon Dioxide 28 mmol/L (22-30); Chloride 106 mmol/L (98-107); Estimated CRCL calculation 13 ml/min; Estimated Glomerular Filt Rate 18; Glucose 170 mg/dL (65-105); Phosphorus 5.5 mg/dL (2.5-4.5); Potassium 3.8 mmol/L (3.4-5.0); Sodium 138 mmol/L (137-145)
[2020-04-13 08:02] LABS: Glucose Point of Care 153 (65-105)
--- NOTE | 2020-04-13 08:12 | P.PNNP_ITS ---
Progress Note: A&P Assessment and Plan (1) ARELIS (acute kidney injury): Code(s): N17.9 - Acute kidney failure, unspecified Status: Acute Assessment and Plan: * likely due to ATN (cardiac arrest, hemodynamic instability) and possibly COVID-19 from recent [facility] hospitalization * unfortunately, requiring renal replacement therapy/dialysis at this time * she is making urine but she is very thin and so poor creatine production and her serum creatinine is over 3. see what 24 hour urine shows. (2) Chest pain: Qualifiers: Chest pain type: unspecified Qualified Code(s): R07.9 - Chest pain, unspecified Code(s): R07.9 - Chest pain, unspecified Status: Acute Assessment and Plan: * seems likely cardiac related * possible pleuritic in nature and due to pneumonia(?) * (3) Pneumonia: Code(s): J18.9 - Pneumonia, unspecified organism Status: Acute Assessment and Plan: * on antibiotics * follow cultures (4) Elevated liver enzymes: Code(s): R74.8 - Abnormal levels of other serum enzymes Status: Acute Assessment and Plan: * were elevated during hospitalization at [facility] but trending down on discharge * possibly resolving shock liver from cardiac arrest * however, HCV+ so this may be part of the issues as well * she is a former alcoholic as well so his may be playing a role as well. (5) Hypertension: Code(s): I10 - Essential (primary) hypertension Status: Chronic Assessment and Plan: * reasonable control at this time * follow hemodynamics (6) Diabetes: Code(s): E11.9 - Type 2 diabetes mellitus without complications Status: Chronic Assessment and Plan: * formal diagnosis(?) * issues with hyperglycemia during last hospitalization at [facility] * follow accu-checks * on SSI Subjective Date/time seen: 04/13/20 16:05 Interval history: pt is alert. feels okay no cp or sob. eager for discharge. due for hd tomorrow. Exam Narrative: Exam Narrative: General: WD/WN but very skinny AA female in NAD Heart: normal S1 and S2; no rub or gallop Lungs: clear to auscultation Abdomen: soft, nontender, nondistended, positive bowel sounds Extremities: no cyanosis or clubbing; no edema Skin: no rash or sq nodules Objective Data Vital Signs Vital Signs: Vital Signs - 24 hr 04/12/20 19:54 04/13/20 09:30 04/13/20 12:23 Temperature 37.2 C Pulse Rate 106 H 91 Respiratory Rate 14 Blood Pressure 149/50 H 171/66 H 153/64 H Pulse Oximetry 95 94 Intake/Output Intake/Output: Intake & Output 04/10/20 04/11/20 04/12/20 04/13/20 23:59 23:59 23:59 23:59 Intake Total 1780 882 3731 300 Output Total 950 [facility] [place] 9224 062 Balance 407 -6648 95 -698 Meds/Results Medications: Active Medications Generic Name Dose Route Start Last Admin Trade Name Freq PRN Reason Stop Dose Admin Amlodipine Besylate 10 mg 04/10/20 09:00 04/13/20 09:34 Amlodipine Besylate 5 Mg Tablet PO 10 mg DAILY VALDEMAR Administration Aspirin 81 mg 04/10/20 09:00 04/13/20 09:34 Aspirin 81 Mg Enteric Tablet PO 81 mg DAILY VALDEMAR Administration Atorvastatin Calcium 40 mg 04/09/20 21:00 04/12/20 21:23 Atorvastatin 40 Mg T
--- NOTE | 2020-04-13 08:12 | PM.PNNEP ---
Progress Note: A&P Assessment and Plan (1) ARELIS (acute kidney injury): Code(s): N17.9 - Acute kidney failure, unspecified Status: Acute Assessment and Plan: likely due to ATN (cardiac arrest, hemodynamic instability) and possibly COVID-19 from recent [facility] hospitalization unfortunately, requiring renal replacement therapy/dialysis at this time she is making urine but she is very thin and so poor creatine production and her serum creatinine is over 3. see what 24 hour urine shows. (2) Chest pain: Qualifiers: Chest pain type: unspecified Qualified Code(s): R07.9 - Chest pain, unspecified Code(s): R07.9 - Chest pain, unspecified Status: Acute Assessment and Plan: seems likely cardiac related possible pleuritic in nature and due to pneumonia(?) (3) Pneumonia: Code(s): J18.9 - Pneumonia, unspecified organism Status: Acute Assessment and Plan: on antibiotics follow cultures (4) Elevated liver enzymes: Code(s): R74.8 - Abnormal levels of other serum enzymes Status: Acute Assessment and Plan: were elevated during hospitalization at [facility] but trending down on discharge possibly resolving shock liver from cardiac arrest however, HCV+ so this may be part of the issues as well she is a former alcoholic as well so his may be playing a role as well. (5) Hypertension: Code(s): I10 - Essential (primary) hypertension Status: Chronic Assessment and Plan: reasonable control at this time follow hemodynamics (6) Diabetes: Code(s): E11.9 - Type 2 diabetes mellitus without complications Status: Chronic Assessment and Plan: formal diagnosis(?) issues with hyperglycemia during last hospitalization at [facility] follow accu-checks on SSI Subjective Date/time seen: 04/13/20 16:05 Interval history: pt is alert. feels okay no cp or sob. eager for discharge. due for hd tomorrow. Exam Narrative: Exam Narrative: General: WD/WN but very skinny AA female in NAD Heart: normal S1 and S2; no rub or gallop Lungs: clear to auscultation Abdomen: soft, nontender, nondistended, positive bowel sounds Extremities: no cyanosis or clubbing; no edema Skin: no rash or sq nodules Objective Data Vital Signs Vital Signs: Vital Signs - 24 hr 04/12/20 19:54 04/13/20 09:30 04/13/20 12:23 Temperature 37.2 C Pulse Rate 106 H 91 Respiratory Rate 14 Blood Pressure 149/50 H 171/66 H 153/64 H Pulse Oximetry 95 94 Intake/Output Intake/Output: Intake & Output 04/10/20 04/11/20 04/12/20 04/13/20 23:59 23:59 23:59 23:59 Intake Total 3884 117 9078 300 Output Total 950 2002 1771 825 Balance 561 -8568 09 -074 Meds/Results Medications: Active Medications Generic Name Dose Route Start Last Admin Trade Name Freq PRN Reason Stop Dose Admin Amlodipine Besylate 10 mg 04/10/20 09:00 04/13/20 09:34 Amlodipine Besylate 5 Mg Tablet PO 10 mg DAILY VALDEMAR Administration Aspirin 81 mg 04/10/20 09:00 04/13/20 09:34 Aspirin 81 Mg Enteric Tablet PO 81 mg DAILY VALDEMAR Administration Atorvastatin Calcium 40 mg 04/09/20 21:00 04/12/20 21:23 Atorvastatin 40 Mg Tablet PO 40 mg HS VALDEMAR Administration Dextrose 12.5 gm 04/09/20 18:27 Dextrose 50% 25 Gm/50 Ml Syringe IV PUSH PRN PRN Hypoglycemia Protocol Famotidine 20 mg 04/09/20 21:00 04/13/20 09:34 Famotidine 20 Mg/2 Ml Vial IV PUSH 20 mg Q12HR VALDEMAR Administration Gabapentin 100 mg 04/10/20 09:00 04/13/20 12:27 Gabapentin 100 Mg Capsule PO 100 mg TID VALDEMAR Administration Glucagon 1 mg 04/09/20 18:27 Glucagon For Inj 1 Mg Vial IM PRN PRN Hypoglycemia Protocol Glucose 15 gm 04/09/20 18:27 Glucose Oral Gel 15 Gm Of Glucse In 37.5 Gm Tube PO PRN PRN Hypoglycemia Protocol Heparin Sodium (Porcine) 5,000 units 04/09/20 21:00 04/13/20 09:3
[2020-04-13 09:30] VITALS: BP 171/66; PULSE 91; O2SAT 94
[2020-04-13] MEDS: levETIRAcetam ORAL SOL 500 MG/5 ML UDC PO ×2 (09:33→20:13)
[2020-04-13] MEDS: amLODIPine BESYLATE 5 MG TABLET 10 MG PO (09:34)
[2020-04-13] MEDS: FAMOTIDINE 20 MG/2 ML VIAL IV PUSH ×2 (09:34→20:11)
[2020-04-13] MEDS: GABAPENTIN 100 MG CAPSULE PO ×3 (09:34→16:56)
[2020-04-13] MEDS: HEPARIN SODIUM 5,000 UNITS/ML VIAL 5000 UNITS SUB-Q ×2 (09:34→20:10)
[2020-04-13] MEDS: LIDOCAINE 5% PATCH 1 PATCH TOPICAL (09:34)
[2020-04-13] MEDS: lisinopriL 20 MG TABLET PO (09:34)
[2020-04-13] MEDS: hydrALAZINE HCL 50 MG TABLET PO ×3 (09:34→16:56)
[2020-04-13] MEDS: ASPIRIN 81 MG ENTERIC TABLET PO (09:34)
[2020-04-13] MEDS: NITROGLYCERIN OINTMENT 1 INCH DOSE TRANSDERM ×2 (09:35→20:16)
--- NOTE | 2020-04-13 09:52 | PM.IMPN ---
Progress Note: A&P Assessment and Plan (1) Elevated liver enzymes: Code(s): R74.8 - Abnormal levels of other serum enzymes Status: Acute Assessment and Plan: Workup is in progress. Will also order ultrasound liver gallbladder pancreas to rule out gallstones and pancreatitis. (2) Hyperlipidemia: Code(s): E78.5 - Hyperlipidemia, unspecified Status: Chronic Assessment and Plan: Stable on medications. (3) Diabetes: Code(s): E11.9 - Type 2 diabetes mellitus without complications Status: Chronic Assessment and Plan: Will continue current treatment and monitor glucose. (4) Hypertension: Code(s): I10 - Essential (primary) hypertension Status: Chronic Assessment and Plan: Stable on medications. (5) Chest pain: Qualifiers: Chest pain type: unspecified Qualified Code(s): R07.9 - Chest pain, unspecified Code(s): R07.9 - Chest pain, unspecified Status: Acute Assessment and Plan: Atypical chest pain but will check troponin and monitor enzymes. (6) ESRD (end stage renal disease): Code(s): N18.6 - End stage renal disease Status: Chronic Assessment and Plan: Will continue current treatment. Nephrology on consult (7) Pneumonia: Code(s): J18.9 - Pneumonia, unspecified organism Status: Acute Assessment and Plan: Will do blood culture and start IV antibiotic. Will repeat chest x-ray. WBC still high, added vancomycin. Additional Plan 1. Pneumonia is getting better. WBC count is normal now. Will repeat chest x-ray in the morning, cultures negative so far. 2. For high creatinine nephrology is on consult, 24 hour urine collection is in progress. Will repeat BMP in the morning to see with a creatinine is now. 3. product development worker is working on placement of the patient. 4. If patient continues to improve, will discharge the patient to [facility] in the morning. Subjective Date/time seen: 04/13/20 09:52 Interval history: Patient was seen during the morning rounds today. Patient is feeling better slightly. Denies any shortness of breath or chest pain. No fever no chills. No new complaints. Will stable Review of Systems Review of Systems: All systems reviewed & are unremarkable except as noted in HPI and below Constitutional: Constitutional: Reports as per HPI Eyes: Eyes: Reports as per HPI ENT: Reports system reviewed and no additional complaints, except as documented Cardiovascular: Cardiovascular: Reports as per HPI Respiratory: Respiratory: Reports as per HPI Gastrointestinal: Gastrointestinal: Reports as per HPI Musculoskeletal: Musculoskeletal: Reports no additional musculoskeletal complaints Neurologic: Reports system reviewed and no additional complaints, except as documented and Reports as per HPI Psychiatric: Psychiatric: Reports no additional psychiatric complaints and Reports as per HPI Endocrine: Endocrine: Reports as per HPI Exam Const: General: cooperative and no acute distress Orientation/consciousness: oriented to person, oriented to place, oriented to time and patient oriented x3 HENMT: Head: normal to inspection Ears: hearing grossly normal bilaterally and external ears normal General nose exam: Normal external nose present Face and sinus: normal facial exam Mouth: Yes Normal oral and palatal mucosa present Eyes: General: appearance normal, both eyes and all related structures Neck: Neck: normal visual inspection and full ROM Chest: Chest palpation & inspection: normal inspection of the chest and normal palpation of entire chest wall Resp: Effort & Inspection: normal respiratory effort Auscultation: clear to auscultation bilaterally Cardio: Jugular venous distension: no JVD Palpation: normal PMI Rate: regular rate Heart sounds: S1 normal heart sound present and S2 normal heart sound present GI: Inspection: normal to inspection Neuro: Genera
[2020-04-13 12:23] VITALS: BP 153/64
[2020-04-13 12:32] LABS: Glucose Point of Care 172 (65-105)
--- NOTE | 2020-04-13 13:26 | WPDCDIQUERY2 ---
CDI Query Clarification Request -Conflicting diagnoses are documented -Hospitalist has documented ESRD. -Rn Transplant has documented, ARELIS likely due to ATN requiring dialysis at this time. Please clarify if renal failure is ESRD, ARELIS/ATN, or unable to determine. <Priti Reddy RN - Last Filed: 04/13/20 13:28> Acute kidney injury/ATN requiring dialysis <Otilio Estevez MD - Last Filed: 04/21/20 08:31>
[2020-04-13 16:00] VITALS: BP 171/62; PULSE 93; RESP 18; TEMP 36.9; O2SAT 96
[2020-04-13 16:50] LABS: Glucose Point of Care 161 (65-105)
[2020-04-13 19:22] VITALS: BP 174/66; PULSE 16; RESP 18; TEMP 36.9; O2SAT 95
[2020-04-13 20:04] LABS: Glucose Point of Care 191 (65-105)
[2020-04-13] MEDS: ATORVASTATIN 40 MG TABLET PO (20:15)
[2020-04-14] VITALS (22 sets, daily range): BP systolic 102–151; BP diastolic 44–81; PULSE 85–123; RESP 12–18; TEMP 36.8–37.7; O2SAT 92–97
[2020-04-14] MEDS: traMADol HCL (*CRX) 50 MG TABLET PO ×3 (01:21→22:20)
[2020-04-14 06:03] LABS: Albumin Level 2.6 g/dL (3.5-5.1); Anion Gap 5 mmol/L (8-16); Blood Urea Nitrogen 29 mg/dL (7-17); Calcium 8.3 mg/dL (8.4-10.2); Carbon Dioxide 26 mmol/L (22-30); Chloride 106 mmol/L (98-107); Estimated CRCL calculation 11 ml/min; Estimated Glomerular Filt Rate 14; Glucose 176 mg/dL (65-105); Potassium 3.8 mmol/L (3.4-5.0); Sodium 137 mmol/L (137-145)
--- NOTE | 2020-04-14 07:41 | PM.PNNEP ---
Progress Note: A&P Assessment and Plan (1) ARELIS (acute kidney injury): Code(s): N17.9 - Acute kidney failure, unspecified Status: Acute Assessment and Plan: likely due to ATN (cardiac arrest, hemodynamic instability) and possibly COVID-19 from recent [facility] hospitalization unfortunately, requiring renal replacement therapy/dialysis at this time she is making urine but she is very thin and so poor creatine production and her serum creatinine is over 3. 24h urine shows creat of 300 translating to CCr of 5.4. Not ready to come off HD yet (2) Chest pain: Qualifiers: Chest pain type: unspecified Qualified Code(s): R07.9 - Chest pain, unspecified Code(s): R07.9 - Chest pain, unspecified Status: Acute Assessment and Plan: seems likely cardiac related possible pleuritic in nature and due to pneumonia(?) (3) Pneumonia: Code(s): J18.9 - Pneumonia, unspecified organism Status: Acute Assessment and Plan: on antibiotics follow cultures (4) Elevated liver enzymes: Code(s): R74.8 - Abnormal levels of other serum enzymes Status: Acute Assessment and Plan: back to normal (5) Hypertension: Code(s): I10 - Essential (primary) hypertension Status: Chronic Assessment and Plan: 131/70. doing well follow hemodynamics (6) Diabetes: Code(s): E11.9 - Type 2 diabetes mellitus without complications Status: Chronic Assessment and Plan: formal diagnosis(?) issues with hyperglycemia during last hospitalization at [facility] follow accu-checks on SSI Subjective Date/time seen: 04/14/20 15:41 Interval history: pt is alert. feels okay no cp or sob. HD due today eager for discharge Exam Narrative: Exam Narrative: General: WD/WN but very skinny AA female in NAD Heart: normal S1 and S2; no rub or gallop Lungs: clear bilaterally Abdomen: soft, nontender, nondistended, positive bowel sounds Extremities: no cyanosis or clubbing; no edema Skin: no january Objective Data Vital Signs Vital Signs: Vital Signs - 24 hr 04/13/20 16:00 04/13/20 19:22 04/14/20 06:51 Temperature 36.9 C 36.9 C 36.8 C Pulse Rate 93 16 L 106 H Respiratory Rate 18 18 16 Blood Pressure 171/62 H 174/66 H 136/81 Pulse Oximetry 96 95 95 04/14/20 07:58 04/14/20 08:00 04/14/20 11:50 Temperature 37.1 C Pulse Rate 85 104 H Respiratory Rate 16 16 Blood Pressure 121/74 Pulse Oximetry 92 95 04/14/20 12:05 04/14/20 12:15 04/14/20 12:30 Temperature Pulse Rate 101 H 102 H 105 H Respiratory Rate Blood Pressure 130/66 115/66 114/49 L Pulse Oximetry 04/14/20 12:45 04/14/20 13:00 04/14/20 13:15 Temperature Pulse Rate 105 H 108 H 111 H Respiratory Rate Blood Pressure 114/49 L 132/66 127/67 Pulse Oximetry 04/14/20 13:30 04/14/20 13:45 04/14/20 14:00 Temperature Pulse Rate 111 H 110 H 111 H Respiratory Rate Blood Pressure 116/64 134/72 140/73 Pulse Oximetry 04/14/20 14:15 04/14/20 14:30 04/14/20 14:45 Temperature Pulse Rate 111 H 112 H 105 H Respiratory Rate Blood Pressure 143/71 H 126/71 102/44 L Pulse Oximetry 04/14/20 15:00 04/14/20 15:07 04/14/20 15:15 Temperature 37.0 C Pulse Rate 113 H 109 H 111 H Respiratory Rate 12 Blood Pressure 130/74 151/77 H 131/70 Pulse Oximetry Intake/Output Intake/Output: Intake & Output 04/11/20 04/12/20 04/13/20 04/14/20 23:59 23:59 23:59 23:59 Intake Total 780 1800 1620 520 Output Total 2002 1775 1700 600 [facility] -1223 25 -80 -80 Meds/Results Medications: Active Medications Generic Name Dose Route Start Last Admin Trade Name Freq PRN Reason Stop Dose Admin Amlodipine Besylate 10 mg 04/10/20 09:00 04/14/20 09:50 Amlodipine Besylate 5 Mg Tablet PO 10 mg DAILY VALDEMAR Administration Aspirin 81 mg 04/10/20 09:00 04/14/20 09:50 Aspirin 81 Mg Enteric Tablet PO 81 mg DA
[2020-04-14 08:03] LABS: Glucose Point of Care 159 (65-105)
[2020-04-14] MEDS: lisinopriL 20 MG TABLET PO (09:50)
[2020-04-14] MEDS: ASPIRIN 81 MG ENTERIC TABLET PO (09:50)
[2020-04-14] MEDS: FAMOTIDINE 20 MG/2 ML VIAL IV PUSH ×2 (09:50→20:45)
[2020-04-14] MEDS: amLODIPine BESYLATE 5 MG TABLET 10 MG PO (09:50)
[2020-04-14] MEDS: GABAPENTIN 100 MG CAPSULE PO ×2 (09:50→16:18)
[2020-04-14] MEDS: hydrALAZINE HCL 50 MG TABLET PO ×2 (09:50→16:18)
[2020-04-14] MEDS: LIDOCAINE 5% PATCH 1 PATCH TOPICAL (09:51)
[2020-04-14] MEDS: NITROGLYCERIN OINTMENT 1 INCH DOSE TRANSDERM ×2 (09:51→20:45)
[2020-04-14] MEDS: levETIRAcetam ORAL SOL 500 MG/5 ML UDC PO ×2 (09:52→20:45)
[2020-04-14] MEDS: levoFLOXacin 250 MG/D5W 50 ML 250 MG/50 ML BAG 50 MG IVPB (09:52)
[2020-04-14] MEDS: HEPARIN SODIUM 5,000 UNITS/ML VIAL 5000 UNITS SUB-Q ×2 (09:53→20:45)
[2020-04-14 10:15] LABS: Total Volume 24 Hour Urine 1300 ml
[2020-04-14 10:24] LABS: Creatinine 24 Hour Urine 0.3 gm/24 (0.8-1.8); Creatinine Urine 26.6 mg/dL
[2020-04-14] MEDS: HEPARIN SODIUM 1,000 UNITS/ML VIAL 1000 UNITS IV PUSH (15:24)
--- NOTE | 2020-04-14 18:06 | PM.DS ---
DS: Admitting Diagnosis Admitting Diagnosis Admitting Diagnosis: Chest pain DS: Discharge Diagnosis Discharge Diagnosis (1) Chest pain: Qualifiers: Chest pain type: unspecified Qualified Code(s): R07.9 - Chest pain, unspecified Code(s): R07.9 - Chest pain, unspecified Status: Acute (2) Pneumonia: Code(s): J18.9 - Pneumonia, unspecified organism Status: Acute (3) ESRD (end stage renal disease): Code(s): N18.6 - End stage renal disease Status: Chronic (4) Diabetes: Code(s): E11.9 - Type 2 diabetes mellitus without complications Status: Chronic (5) Elevated liver enzymes: Code(s): R74.8 - Abnormal levels of other serum enzymes Status: Acute (6) Hypertension: Code(s): I10 - Essential (primary) hypertension Status: Chronic (7) Hyperlipidemia: Code(s): E78.5 - Hyperlipidemia, unspecified Status: Chronic (8) Hepatitis C: Code(s): B19.20 - Unspecified viral hepatitis C without hepatic coma Status: Acute DS: Summary Hospital Course Reason for hospitalization: 64yo female with recent extended illness due to COVID-19 that resulted in renal failure requiring HD here for chest pain. Please see H&P for details. Hospital Course: Patient developed chest pain while undergoing hemodialysis prior to admission. She is brought to the emergency room for evaluation. Vital signs were stable. EKG showed borderline ST T wave changes in high lateral leads. Chest x-ray showed mild pulmonary edema and minimal bibasilar airspace opacities. [place] [address]. Patient was anemic with a hemoglobin in the 8-9 range but stable. AST and ALT were mildly elevated but they trended downward on repeat. Lipase was 405 but it was not felt that she had pancreatitis. Rt upper quadrant US showing no acute findings. Hepatitis panel was positive for Hepatitis C antibody and RNA also was positive (patient informed). Serial troponins remained negative. Glucose elevated at 344 but this improved. A1c 5.9. UA showed 3+ glucose and 3+ protein. 24 hour urine creatinine was performed which was 0.3 g per 24 hour. Lactic, CRP and TSH were normal. She continued with dialysis during her hospital course. Echo showing EF 70% and diastolic dysfunction grade I and mild pulmonary HTN. Doppler lower extremities negative for DVT. Pulmonary perfusion low probability. Repeat CXR showing persistent findings consistent with pneumonia. Antibiotics started. Her WBC trended down. No overt evidence of aspiration. Blood cultures no growth and urine culture negative. Patient tachycardic at times but could be related to fluid shifts since TSH normal and not felt to have PE. Patient did well and was able to be discharged back to the custodial on 04/14/20. Status at Discharge Cognitive/behavioral status at discharge: Patient is stable for discharge Time Spent with Patient Time attestation: Total time spent providing and/or coordinating discharge services: 35 minutes Time spent: Greater than 30 minutes Specific discharge activities: Patient care, discussed with family Exam Narrative: Exam Narrative: AF 99.8 143/65 103 18 97%ra Gen - NARD lying semirecumbent in bed Chest - clear anteriorly; tunneled catheter in right upper chest CV - mildly tachycardic, regular Abd - Soft, ND, +BS Ext - No pedal edema; necrotic tips to multiple fingers Psych - Nml mood and affect Skin - Warm and dry DS: Data Data Completed and Pending Labs on day of discharge: Labs from last 24 hours 04/14/20 04/14/20 04/14/20 07:58 06:59 05:37 Sodium 137 Potassium 3.8 Chloride 106 Carbon Dioxide 26 Anion Gap 5 L BUN 29 H Creatinine 3.80 H Estim Creat Clear Calc 11 Estimated GFR 14 L Glucose 176 H POC Capillary Glucose 159 H Calcium 8.3 L Phosphorus 6.0 H Albumin 2.6 L Ur 24 Hour Volume 1300 Urine Creatinine 26
[2020-04-14 18:24] LABS: Glucose Point of Care 103 (65-105)
[2020-04-14 19:11] LABS: Vancomycin Random < 5.0 ug/mL (10-20)
[2020-04-14] MEDS: ATORVASTATIN 40 MG TABLET PO (20:45)
[2020-04-14 22:03] LABS: Glucose Point of Care 165 (65-105)
--- NOTE | 2020-04-17 09:31 | PC.NURSE ---
04/10 blood cx are negative
--- NOTE | 2020-04-20 15:58 | PC.NURSE ---
blood cx 04/12 are negative
== END 2020-04-15 02:32 | DRG 682 ==
LOC: ANHED 13:39 → ANHIMU 14:34 → ANH3MED 04-10 14:32
PROVIDERS: Internal Medicine; Internal Medicine Nephrology; Admitting Provider Internal Medicine; Emergency Provider Emergency Medicine; PCP Internal Medicine; Visit Provider Nurse Practitioner
DX: N17.9 Acute kidney failure, unspecified (principal); J18.9 Pneumonia, unspecified organism; E11.22 Type 2 diabetes mellitus with diabetic chronic kidney disease; R07.89 Other chest pain; I12.9 Hypertensive chronic kidney disease with stage 1 through stage 4 chronic kidney disease, or unspecified chronic kidney disease; N18.9 Chronic kidney disease, unspecified; B94.8 Sequelae of other specified infectious and parasitic diseases; E11.42 Type 2 diabetes mellitus with diabetic polyneuropathy; E78.5 Hyperlipidemia, unspecified; B19.20 Unspecified viral hepatitis C without hepatic coma; Z79.4 Long term (current) use of insulin; Z79.899 Other long term (current) drug therapy; Z86.73 Personal history of transient ischemic attack (TIA), and cerebral infarction without residual deficits; Z86.74 Personal history of sudden cardiac arrest
CPT/HCPCS: 36415; 51701; 71045; 71046; 76705; 78580; 80053; 80069; 80074; 80202; 81001; 81050; 82570; 82948; 83036; 83605; 83690; 83735; 84443; 84484; 85025; 85027; 85610; 85730; 86140; 87040; 87086; 87522; 93005; 93306; 93970; 96365; 96372; 96374; 96375; 96376; 99285; A9270; A9540; G0257; G0378; J1644; J1815; J1956; J2270; J2405; J3370; J7030; Q5106

== ENCOUNTER 2020-04-23 14:05 | Emergency (ER) | payer MEDICARE, MEDICAID, SELFPAY ==
[2020-04-23] VITALS (13 sets, daily range): BP systolic 90–122; BP diastolic 60–79; PULSE 76–110; RESP 14–27; TEMP 37; O2SAT 99–100
[2020-04-23 14:38] LABS: Glucose Point of Care 438 (65-105)
[2020-04-23 15:06] LABS: Basophils Absolute Auto 0.1 K/mm3 (0.0-0.1); Basophils Percent Auto 0.5 % (0.2-1.2); Eosinophils Absolute Auto 0.1 K/mm3 (0-0.3); Eosinophils Percent Auto 1.2 % (0-4.4); Hematocrit 25.8 % (37.0-47.0); Hemoglobin 8.3 g/dL (12.0-15.0); Immature Granulocyte Absolute 0.11 K/mm3 (0.00-0.031); Lymphocytes Absolute Auto 0.78 K/mm3 (0.9-3.2); Mean Corpuscular HGB Conc 32.2 g/dl (32-36); Mean Corpuscular Hemoglobin 28.6 pg (26-34); Mean Platelet Volume 11.5 fl (7.4-10.4); Monocytes Absolute Auto 1.2 K/mm3 (0.1-0.6); Monocytes Percent Auto 10.3 % (2.6-8.5); Platelet Count Result 338 k/mm3 (150-375); Red Cell Distribution Width 18.6 % (11.5-14.5); White Blood Count 11.2 K/mm3 (4.5-10.0)
[2020-04-23 15:23] LABS: Beta-Hydroxybutyrate/Acetoacetate 0.06 mmol/L (0.02-0.27)
[2020-04-23 15:26] LABS: Alanine Aminotransferase 26 U/L (4-35); Albumin Level 2.9 g/dL (3.5-5.1); Alkaline Phosphatase 396 U/L (38-126); Anion Gap 7 mmol/L (8-16); Aspartate Amino Transferase 60 U/L (14-36); Bilirubin,Total 0.4 mg/dL (0.2-1.3); Blood Urea Nitrogen 47 mg/dL (7-17); Calcium 8.2 mg/dL (8.4-10.2); Carbon Dioxide 23 mmol/L (22-30); Chloride 105 mmol/L (98-107); Estimated CRCL calculation 13 ml/min; Estimated Glomerular Filt Rate 20; Glucose 467 mg/dL (65-105); Potassium 3.6 mmol/L (3.4-5.0); Sodium 135 mmol/L (137-145)
--- NOTE | 2020-04-23 15:39 | ED.RECABL ---
HPI - Recheck/Abnormal Lab/Rx General Chief Complaint: Recheck/Abnormal Lab/Rx Stated Complaint: elevated blood sugar Time Seen by Provider: 04/23/20 14:08 Source: patient Mode of arrival: EMS Limitations: no limitations History of Present Illness HPI narrative: 64-year-old female Sent from skilled nursing due to high Accu-Chek reading Patient does not have any complaints at all Does appear that she was admitted here briefly about 2 weeks ago however prior to that, and prior to being admitted to the SNF, she apparently had a quite lengthy Covid related hospitalization at [place] She is diabetic and the insulin dose I am finding is 3 units of regular with meals, I cannot see any sliding scale She is also a dialysis patient and EMS indicated that she had not been dialyzed since last Monday however on checking with the SNF that is not exactly the case and it appears that on Monday her dialysis was terminated because of a bowel movement and on Monday her dialysis was terminated because of crying Related Data Home Medications Medication Instructions Recorded Confirmed amlodipine 10 mg PO DAILY 04/09/20 04/09/20 aspirin 81 mg PO DAILY 04/09/20 04/09/20 atorvastatin 40 mg PO HS 04/09/20 04/09/20 gabapentin 100 mg PO TID 04/09/20 04/09/20 hydralazine 50 mg PO TID 04/09/20 04/09/20 insulin lispro 3 unit SUBCUT TIDWMEAL 04/09/20 04/09/20 levetiracetam 500 mg PO Q12H 04/09/20 04/09/20 lidocaine 2.5 g TOPICAL DAILY 04/09/20 04/09/20 lidocaine [Lidoderm] 1 patch TOPICAL DAILY 04/09/20 04/09/20 lisinopril 20 mg PO DAILY 04/09/20 04/09/20 nitroglycerin 1 inch TRANSDERMAL Q12H 04/09/20 04/09/20 Allergies Allergy/AdvReac Type Severity Reaction Status Date / Time No Known Allergies Allergy Verified 04/09/20 12:05 Review of Systems Review of Systems: All systems reviewed & are unremarkable except as noted in HPI and below Constitutional: Constitutional: Denies chills, Denies fatigue, Denies fever(s), Denies headache(s) and Denies weakness Eyes: Eyes: Reports no additional eye complaints and Denies change in vision ENT: Denies headache(s), Denies epistaxis, Denies nasal congestion and Denies sore throat Cardiovascular: Cardiovascular: Denies chest pain, Denies leg edema, Denies palpitations and Denies dyspnea Respiratory: Respiratory: Denies cough, Denies dyspnea and Denies wheezing Gastrointestinal: Gastrointestinal: Denies abdominal pain, Denies diarrhea, Denies nausea and Denies vomiting Genitourinary: Genitourinary: Denies hematuria, Denies urinary frequency and Denies dysuria Musculoskeletal: Musculoskeletal: Denies deformity, Denies arthralgias, Denies joint swelling, Denies muscle weakness and Denies numbness Integumentary/Breasts: Skin/Breast: Denies rash and Denies wounds Neurologic: Denies headache(s), Denies focal weakness, Reports numbness and Denies weakness Psychiatric: Psychiatric: Reports no additional psychiatric complaints Endocrine: Endocrine: Denies fatigue and Denies palpitations Hematologic/Lymphatic: Hematologic/Lymphatic: Denies easy bleeding and Denies easy bruising Allergic/Immunologic: Allergic/Immunologic: Denies wheezing PMFSH Past Medical History Medical History (Updated 04/23/20 @ 15:57 by Charles Gorman MD) Asthma As a child COVID-19 virus infection Diabetes History of CVA (cerebrovascular accident) Hyperlipidemia Hypertension Neuropathy Surgical History Surgical History (Updated 04/09/20 @ 18:06 by Vesta Robbins NP) H/O tubal ligation History of tonsillectomy Family History Family History (Updated 04/09/20 @ 18:12 by Vesta Robbins NP) Unknown Family history unknown Other Unknown family medical history Social History Social History (Updated 04/09/20 @ 18:14 by Vesta Robbins NP) Social History: The patient stated that she has 5 children and that her 2 daughters of the durable power assistant district attorney for healthcare. The patient stated that she is a fu
[2020-04-23] MEDS: INSULIN HUMAN REGULAR (*BKC) 100 UNITS/ML 8 UNITS IV PUSH (15:51)
[2020-04-23 15:54] LABS: Fractional Inspired Oxygen 21 %; HCO3 VBG 20.1 mEq/l (24.0-30.0); PCO2 VBG 31.6 mmHg (42.0-48.0); PO2 VBG 51.3 mmHg (35.0-45.0); pH VBG 7.421 (7.300-7.400)
[2020-04-23 16:48] LABS: Glucose Point of Care 230 (65-105)
--- NOTE | 2020-04-23 17:03 | PC.NURSE ---
[facility] accepted return to senior living ETA 1730 Trip # [id number]
--- NOTE | 2020-04-23 17:23 | PC.NURSE ---
New ETA for [facility]
== END 2020-04-23 18:03 ==
PROVIDERS: Emergency Provider Emergency Medicine; PCP Internal Medicine
DX: E11.65 Type 2 diabetes mellitus with hyperglycemia (principal); J45.909 Unspecified asthma, uncomplicated; Z86.16 Personal history of COVID-19; Z86.73 Personal history of transient ischemic attack (TIA), and cerebral infarction without residual deficits; E78.5 Hyperlipidemia, unspecified; I10 Essential (primary) hypertension; E11.40 Type 2 diabetes mellitus with diabetic neuropathy, unspecified; Z79.4 Long term (current) use of insulin; Z79.82 Long term (current) use of aspirin; Z99.2 Dependence on renal dialysis
CPT/HCPCS: 36415; 80053; 82010; 82803; 82948; 85025; 96374; 99284; J1815

== ENCOUNTER 2020-05-05 02:15 | Inpatient (IN) | payer MEDICARE, MEDICAID, SELFPAY ==
[2020-05-05] VITALS (40 sets, daily range): BP systolic 92–125; BP diastolic 49–65; PULSE 94–116; RESP 16–37; TEMP 36.4–37.2; O2SAT 93–100; BMI 15.0
--- NOTE | ~2020-05-05 | XR_ITS ---
EXAMINATION: XR chest 1V portable INDICATION: Chest pain TECHNIQUE: Portable AP chest at 0 to 43 hours COMPARISON: 04/14/2020 FINDINGS: A right internal jugular catheter ends with its tip in the distal superior vena cava. A mil d diffuse interstitial pattern is present. The heart size is upper limits of normal for technique. Th ere is no pleural effusion or pneumothorax. IMPRESSION: 1. Mild pulmonary edema. Reviewed, dictated and finalized at location A. LYRICIST IMPRESSION: 1. Mild pulmonary edema.
--- NOTE | 2020-05-05 02:15 | PC.NURSE ---
Pt. arrived to ed w/ dialysis catheter undressed, sutures were in place. Pt. was complaining of pain at catheter site. Redness noted around area as well. Pt. catheter site cleaned w/ Betadine and ChloraPrep and redressed.
--- NOTE | 2020-05-05 02:18 | ED.RECABL ---
HPI - Recheck/Abnormal Lab/Rx General Chief Complaint: Recheck/Abnormal Lab/Rx Stated Complaint: DECREASED HGB, CP @ PICC SITE Time Seen by Provider: 05/05/20 02:18 History of Present Illness HPI narrative: 64 yo female brought [facility] by [facility] from [facility] for [facility]. Labs drawn earlier in the day reportedly came back showing a hemoglobin of 6. She is complaining of chest pain, which seems to be originating from a catheter in her right chest. She arrived with no dressing coving the catheter insertion site. Related Data Home Medications Medication Instructions Recorded Confirmed amlodipine 10 mg PO DAILY 04/09/20 04/09/20 aspirin 81 mg PO DAILY 04/09/20 04/09/20 atorvastatin 40 mg PO HS 04/09/20 04/09/20 gabapentin 100 mg PO TID 04/09/20 04/09/20 hydralazine 50 mg PO TID 04/09/20 04/09/20 insulin lispro 3 unit SUBCUT TIDWMEAL 04/09/20 04/09/20 levetiracetam 500 mg PO Q12H 04/09/20 04/09/20 lidocaine 2.5 g TOPICAL DAILY 04/09/20 04/09/20 lidocaine [Lidoderm] 1 patch TOPICAL DAILY 04/09/20 04/09/20 lisinopril 20 mg PO DAILY 04/09/20 04/09/20 nitroglycerin 1 inch TRANSDERMAL Q12H 04/09/20 04/09/20 Allergies Allergy/AdvReac Type Severity Reaction Status Date / Time No Known Allergies Allergy Verified 04/09/20 12:05 Review of Systems Review of Systems: ROS unobtainable: Yes unobtainable due to mental status Constitutional: Constitutional: Denies fever(s) Cardiovascular: Cardiovascular: Reports chest pain Respiratory: Respiratory: Reports dyspnea PMFSH Past Medical History Medical History Asthma As a child COVID-19 virus infection Diabetes History of CVA (cerebrovascular accident) Hyperlipidemia Hypertension Neuropathy Surgical History Surgical History H/O tubal ligation History of tonsillectomy Family History Family History Unknown Family history unknown Other Unknown family medical history Social History Social History Social History: The patient stated that she has 5 children and that her 2 daughters of the durable power sports attorney for healthcare. The patient stated that she is a full code. She is currently in rehab at [facility]. The patient stated that she lived at home by herself before [facility]. 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 She denies using any marijuana or illicit drugs. Lifelong nonsmoker. Smoking status: Never smoker Alcohol intake: former Drinks per week: 3 Substance use: former Gender identity (if verbalized by the patient): Female Spiritual care concerns: No Exam Const: General: alert and ill appearing Nutritional Appearance: thin HENMT: Head: normal to inspection Eyes: Pupils: Equal, round and reactive pupils present Neck: Neck: normal visual inspection Chest: Other: uncovered vascular access port in right chest Resp: Effort & Inspection: normal respiratory effort Auscultation: clear to auscultation bilaterally Cardio: Rate: regular rate Rhythm: regular rhythm GI: GI Palp: Yes Soft to palpation and No Tenderness to palpation present (GI) Neuro: General: moves all extremities and CN's II-XI intact bilaterally Speech: normal speech Extrem: Other: multiple necrotic fingertips Course Vital Signs Vital signs: Vital Signs Temperature 36.9 C 05/05/20 02:15 Pulse Rate 96 05/05/20 02:15 Respiratory Rate 24 H 05/05/20 02:15 Blood Pressure 109/62 05/05/20 02:15 Pulse Oximetry 99 05/05/20 02:15 Temperature 36.9 C 05/05/20 02:15 Pulse Rate 106 H 05/05/20 05:15 Respiratory Rate 37 H 05/05/20 05:15 Blood Pressure 117/63 05/05/20 05:00 Pulse Oximetry 97 05/05/20 05:15 MDM - Recheck/Abnormal Lab/Rx Differential Diagnosis Differential diagnosis: Likely other (CVC
[2020-05-05 03:01] LABS: Basophils Absolute Auto 0.1 K/mm3 (0.0-0.1); Basophils Percent Auto 0.3 % (0.2-1.2); Eosinophils Absolute Auto 0.2 K/mm3 (0-0.3); Eosinophils Percent Auto 0.9 % (0-4.4); Immature Granulocyte Absolute 0.26 K/mm3 (0.00-0.031); Immature Granulocyte Percent A 1.2 % (0-0.5); Lymphocytes Percent Auto 7.1 % (18.3-44.2); Mean Corpuscular HGB Conc 31.9 g/dl (32-36); Mean Corpuscular Hemoglobin 27.8 pg (26-34); Mean Corpuscular Volume 87.2 fl (80-100); Mean Platelet Volume 10.5 fl (7.4-10.4); Monocytes Percent Auto 9.3 % (2.6-8.5); Neutrophils Absolute Auto 17.1 K/mm3 (1.3-6.7); Neutrophils Percent Auto 81.2 % (45.5-73.1); Platelet Count Result 535 k/mm3 (150-375); Red Blood Count 2.34 M/mm3 (4.2-5.4); Red Cell Distribution Width 17.3 % (11.5-14.5); White Blood Count 21.1 K/mm3 (4.5-10.0)
[2020-05-05 03:06] LABS: INR 0.9; Prothrombin Time 13.1 Seconds (11.1-14.7)
[2020-05-05 03:07] LABS: Partial Thromboplastin Time 34.5 SECONDS (22.3-36.8)
[2020-05-05 03:10] LABS: Alanine Aminotransferase 18 U/L (4-35); Albumin Level 2.8 g/dL (3.5-5.1); Alkaline Phosphatase 225 U/L (38-126); Anion Gap 8 mmol/L (8-16); Aspartate Amino Transferase 51 U/L (14-36); Bilirubin,Total 0.4 mg/dL (0.2-1.3); Blood Urea Nitrogen 47 mg/dL (7-17); Calcium 8.1 mg/dL (8.4-10.2); Carbon Dioxide 24 mmol/L (22-30); Chloride 109 mmol/L (98-107); Estimated CRCL calculation 9 ml/min; Estimated Glomerular Filt Rate 15; Glucose 108 mg/dL (65-105); Sodium 141 mmol/L (137-145)
[2020-05-05 03:20] LABS: Hematocrit 20.4 % (37.0-47.0); Hemoglobin 6.5 g/dL (12.0-15.0)
[2020-05-05 04:13] LABS: Add Urine Microscopic? YES; Appearance Urine Clear (Clear); Bilirubin Urine Negative (Negative); Blood Urine Negative (Negative); Color Urine Yellow (Yellow); Glucose Urine UA Negative (Negative); Ketones Urine Negative (Negative); Leukocyte Esterase Ur Trace LEU/UL (Negative); Nitrate Urine Negative (Negative); Protein Urine 3+ mg/dL (Negative); RBC Urine 0-2 /hpf (0-2); Specific Grav Ur 1.014 (1.001-1.035); Squamous Epithelial Cell Urine Rare /hpf (Few); Urobilinogen Urine Negative mg/dL (<2.0)
--- NOTE | 2020-05-05 05:15 | PC.NURSE ---
original stat dose of zosyn hung and infused prior to medication being cancelled and changed by pharmacist.
--- NOTE | 2020-05-05 06:09 | ADMGEN ---
This patient, Jeny Webb, was admitted to [facility] Room 313-01. Patient/family oriented to hospital policies and general routines including ID bracelet, bed and alarms, visiting hours, pain management, procedures, bathroom and other care routines, personal items, smoking policy, room service/diet, and visiting hours. Information on how to activate the Rapid Response Team has been discussed. Patient/Family are encouraged to report perceived risks to care and to ask questions if they do not understand what they are told or what they should do.
[2020-05-05 08:10] LABS: Glucose Point of Care 292 (65-105)
--- NOTE | 2020-05-05 10:05 | PM.CNNEP ---
Assessment and Plan Assessment and plan (1) ARELIS (acute kidney injury): Code(s): N17.9 - Acute kidney failure, unspecified Status: Acute Assessment and Plan: likely due to ATN (cardiac arrest, hemodynamic instability) and possibly COVID-19 from recent/protracted [facility] hospitalization unfortunately, requiring renal replacement therapy/dialysis at this time - no evidence of recovery plan HD tomorrow however, if patient continues to refuse to do dialysis, may need to discuss with family goals of care (2) Anemia: Code(s): D64.9 - Anemia, unspecified Status: Acute Assessment and Plan: partly related to ARELIS/ARF as well as missed doses of Epogen (since she is refusing dialysis) follow trend of H/H PRBC transfusion per protocol (3) Leukocytosis: Code(s): D72.829 - Elevated white blood cell count, unspecified Status: Acute Assessment and Plan: unclear etiology Infectious Disease consulted (4) Hypertension: Code(s): I10 - Essential (primary) hypertension Status: Chronic Assessment and Plan: reasonable control at this time follow hemodynamics (5) Diabetes: Code(s): E11.9 - Type 2 diabetes mellitus without complications Status: Chronic Assessment and Plan: formal diagnosis(?) follow accuchecks on SSI Will continue to follow. History of Present Illness Reason for Consult Consult date: 05/05/20 Reason for consult: acute renal failure (requiring renal replacement therapy/dialysis) Chief Complaint Chief complaint: anemia, sepsis, possible CVC infection History of Present Illness Narrative: The patient is not the best historian and most of the information I have is from review of the electronic medical record, my personal experience taking care of this patient, and discussion with the medical staff involved in her care. The patient is a 64-year-old female with an extensive past medical history as outlined below who presented to [facility] Emergency room for further evaluation of abnormal labs, specifically significant anemia, that were obtained at her nursing facility (although it should be noted that she also had complaints of chest pain as well but I do not think that was the reason she was sent to the emergency room). Her nursing facility jeovanny routine blood tests which demonstrated her hemoglobin of 6.6 which prompted the called the EMS and transferred to the emergency room. As already mentioned, she complained of chest pain in the emergency room but it is not clear to me if she had chest pain at her nursing facility or if that had any bearing on whether not EMS was called to transfer her to the emergency room as I was given the impression that it was her laboratory abnormalities that were the reason for her transfer to the ER. Workup and evaluation in the emergency room demonstrated labs consistent with her history of acute kidney disease requiring dialysis with repeat testing demonstrating her significant anemia. it was also noted that she had a significant white blood cell count and hence the concern for some possible infection as well. Given her complex medical history in association with her son near severe anemia, she was admitted the hospital for further evaluation and therapy. Renal consultation was requested due to her acute kidney injury requiring renal replacement therapy/dialysis. Contrary to what is noted in the electronic medical record as end-stage renal disease , the patient actually has acute kidney injury/acute renal failure requiring renal replacement therapy/dialysis. From review of her extensive records at [facility], she has a baseline creatinine of around 1.2 - 1.4 mg/dL (arguing that she does have some mild renal insufficiency at baseline). Her hospitalization [facility] was complicated by a cardiac arrest and COVID-19 infection, as well as acute encephalopathy and
--- NOTE | 2020-05-05 10:40 | PC.NURSE ---
At 1030 AM, Pt stating she has chest pain. When asked where she pointed to her heart; she is unable to qualify the pain. Called Dr. Cloud who stated she had just seen pt and knew of the chest pain. She said she informed her it was due to her being anemic. I asked if she wanted to get a stat EKG or draw a trop just to be certain it was related to anemia. She stated no. Continuing to monitor pt closely. Pt is on tele and vitals were taken and WNL.
--- NOTE | 2020-05-05 11:10 | PM.IMHP ---
H&P: HPI History of Present Illness Date/Time: 05/05/20 11:10 CC: CHEST PAIN Chief Complaint: Chest pain Narrative: Jeny Webb is a 64 year old female admitted with chest pain. Pt had labs drawn in [facility], which showed her Hb at 6. Pt also complains of mild intermittent chest pain, troponin ordered but suggested to nurse chest pain maybe due to severe anaemia. Patient had recently started dialysis after a extended COVID 19 illness at [facility]. Pt recently started dialysis concern over central line infection today. Pt states she wants to go home after her stay here and will not go to back to [facility] rehab. Review of Systems Review of Systems: All systems reviewed & are unremarkable except as noted in HPI and below PMFSH Past Medical History Medical History Asthma As a child COVID-19 virus infection Diabetes History of CVA (cerebrovascular accident) Hyperlipidemia Hypertension Neuropathy Surgical History Surgical History H/O tubal ligation History of tonsillectomy Family History Family History Unknown Family history unknown Other Unknown family medical history Social History Social History Social History: The patient stated that she has 5 children and that her 2 daughters of the durable power patent prosecution attorney for healthcare. The patient stated that she is a full code. She is currently in rehab at [facility]. The patient stated that she lived at home by herself before COVID. 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 She denies using any marijuana or illicit drugs. Lifelong nonsmoker. Smoking status: Never smoker Tobacco type: cigarettes Smoking end date: 05/04/20 Alcohol intake: former Drinks per week: 3 Substance use: former Gender identity (if verbalized by the patient): Female Spiritual care concerns: No Meds Home Medications and Allergies Home Medications Medication Instructions Recorded Confirmed Type amlodipine 10 mg PO DAILY 04/09/20 05/05/20 History aspirin 81 mg PO DAILY 04/09/20 05/05/20 History atorvastatin 40 mg PO HS 04/09/20 05/05/20 History gabapentin 100 mg PO TID 04/09/20 05/05/20 History hydralazine 50 mg PO TID 04/09/20 05/05/20 History insulin lispro 3 unit SUBCUT TIDWMEAL 04/09/20 05/05/20 History levetiracetam 500 mg PO Q12H 04/09/20 05/05/20 History lidocaine 2.5 g TOPICAL DAILY 04/09/20 05/05/20 History lidocaine [Lidoderm] 1 patch TOPICAL DAILY 04/09/20 05/05/20 History lisinopril 20 mg PO DAILY 04/09/20 05/05/20 History insulin lispro See Rx Instructions .ROUTE .COMPLEX 05/05/20 05/05/20 History Allergies Allergy/AdvReac Type Severity Reaction Status Date / Time No Known Allergies Allergy Verified 05/05/20 07:08 Vital Signs Vital Signs - 24 hr 05/05/20 02:15 05/05/20 02:22 05/05/20 02:23 Temperature 36.9 C Pulse Rate 96 96 102 H Respiratory Rate 24 H 24 H 21 H Blood Pressure 109/62 109/62 Pulse Oximetry 99 100 98 05/05/20 02:30 05/05/20 02:31 05/05/20 02:45 Temperature Pulse Rate 95 95 95 Respiratory Rate 21 H 16 24 H Blood Pressure 117/63 116/60 Pulse Oximetry 99 99 05/05/20 02:46 05/05/20 02:57 05/05/20 02:58 Temperature Pulse Rate 95 96 Respiratory Rate 22 H 28 H 22 H Blood Pressure 116/60 Pulse Oximetry 100 05/05/20 03:00 05/05/20 03:01 05/05/20 03:15 Temperature Pulse Rate 95 97 106 H Respiratory Rate 24 H 23 H 23 H Blood Pressure 118/61 125/57 L Pulse Oximetry 100 100 05/05/20 03:16 05/05/20 03:30 05/05/20 03:31 Temperature Pulse Rate 104 H 101 H 101 H Respiratory Rate 21 H 25 H 23 H Blood Pressure 108/55 L Pulse Oximetry 05/05/20 03:45 05/05/20 04:00 05/05/20 04:01 Temperu
[2020-05-05 11:26] LABS: Hepatitis B Surface Antigen Negative (Negative)
[2020-05-05] MEDS: SODIUM CHLORIDE 0.9% IV 250 ML 30 ML IV CONT (11:51)
[2020-05-05 11:59] LABS: Troponin I < 0.012 ng/mL (0.000-0.034)
[2020-05-05 12:10] LABS: Glucose Point of Care 169 (65-105)
[2020-05-05] MEDS: levETIRAcetam ORAL SOL 500 MG/5 ML UDC PO ×2 (12:27→19:57)
[2020-05-05] MEDS: hydrALAZINE HCL 50 MG TABLET PO ×2 (12:27→17:31)
[2020-05-05] MEDS: lisinopriL 20 MG TABLET PO (12:27)
[2020-05-05] MEDS: INSULIN ASPART (*BKC) 100 UNITS/ML SUB-Q ×2 (12:31→17:38)
[2020-05-05] MEDS: amLODIPine BESYLATE 5 MG TABLET 10 MG PO (13:53)
[2020-05-05] MEDS: GABAPENTIN 100 MG CAPSULE PO ×2 (13:54→17:31)
[2020-05-05] MEDS: ASPIRIN 81 MG ENTERIC TABLET PO (13:54)
--- NOTE | 2020-05-05 14:33 | WPDINFPN2 ---
Progress Note: A&P Assessment and Plan (1) Leukocytosis: Code(s): D72.829 - Elevated white blood cell count, unspecified Status: Acute Assessment and Plan: 1. Leukocytosis 2. Anemia (her CC), non infectious 3. ARF during CoVid 19 infection, remains on HD REC Ctx and Vanc #1. Review her [facility] records for prior WBCs (not in EMR nor current paper record). Stop empiric antibiotics if BCs remain NG. Subjective Date/time seen: 05/05/20 14:33 Objective Data Vital Signs Vital Signs: Vital Signs - 24 hr 05/05/20 02:15 05/05/20 02:22 05/05/20 02:23 Temperature 36.9 C Pulse Rate 96 96 102 H Respiratory Rate 24 H 24 H 21 H Blood Pressure 109/62 109/62 Pulse Oximetry 99 100 98 05/05/20 02:30 05/05/20 02:31 05/05/20 02:45 Temperature Pulse Rate 95 95 95 Respiratory Rate 21 H 16 24 H Blood Pressure 117/63 116/60 Pulse Oximetry 99 99 05/05/20 02:46 05/05/20 02:57 05/05/20 02:58 Temperature Pulse Rate 95 96 Respiratory Rate 22 H 28 H 22 H Blood Pressure 116/60 Pulse Oximetry 100 05/05/20 03:00 05/05/20 03:01 05/05/20 03:15 Temperature Pulse Rate 95 97 106 H Respiratory Rate 24 H 23 H 23 H Blood Pressure 118/61 125/57 L Pulse Oximetry 100 100 05/05/20 03:16 05/05/20 03:30 05/05/20 03:31 Temperature Pulse Rate 104 H 101 H 101 H Respiratory Rate 21 H 25 H 23 H Blood Pressure 108/55 L Pulse Oximetry 05/05/20 03:45 05/05/20 04:00 05/05/20 04:01 Temperature Pulse Rate 102 H 100 100 Respiratory Rate 19 36 H 33 H Blood Pressure 120/62 Pulse Oximetry 96 93 93 05/05/20 04:15 05/05/20 04:30 05/05/20 04:31 Temperature Pulse Rate 103 H 104 H 104 H Respiratory Rate 36 H 37 H 37 H Blood Pressure 121/65 Pulse Oximetry 93 93 93 05/05/20 04:45 05/05/20 05:00 05/05/20 05:01 Temperature Pulse Rate 105 H 105 H 105 H Respiratory Rate 34 H 36 H 34 H Blood Pressure 117/63 Pulse Oximetry 95 96 96 05/05/20 05:15 05/05/20 05:30 05/05/20 05:31 Temperature Pulse Rate 106 H 109 H 109 H Respiratory Rate 37 H 18 27 H Blood Pressure Pulse Oximetry 97 98 97 05/05/20 05:32 05/05/20 06:00 05/05/20 08:00 Temperature 36.4 C L Pulse Rate 109 H 104 H 110 H Respiratory Rate 26 H 18 Blood Pressure 92/51 L 104/50 L Pulse Oximetry 97 94 05/05/20 08:22 05/05/20 09:35 05/05/20 09:51 Temperature 36.6 C 37.1 C Pulse Rate 106 H 94 94 Respiratory Rate 18 18 18 Blood Pressure 120/53 L 115/49 L Pulse Oximetry 93 100 96 05/05/20 10:35 05/05/20 10:50 05/05/20 12:00 Temperature 36.6 C 36.7 C Pulse Rate 105 H 105 H 110 H Respiratory Rate 18 16 Blood Pressure 121/56 L 120/57 L Pulse Oximetry 97 96 Intake/Output Intake/Output: Intake & Output 05/02/20 05/03/20 05/04/20 05/05/20 23:59 23:59 23:59 23:59 Intake Total 830 Output Total 100 Balance 730 Meds/Results Medications: Active Medications Generic Name Dose Route Start Last Admin Trade Name Freq PRN Reason Stop Dose Admin Amlodipine Besylate 10 mg 05/05/20 11:25 05/05/20 13:53 Amlodipine Besylate 5 Mg Tablet PO 10 mg DAILY VALDEMAR Administration Aspirin 81 mg 05/05/20 11:25 05/05/20 13:54 Aspirin 81 Mg Enteric Tablet PO 81 mg DAILY ON LICENSE OF [facility] Administration Atorvastatin Calcium 40 mg 05/05/20 21:00 Atorvastatin 40 Mg Tablet PO HS ON LICENSE OF [facility] Gabapentin 100 mg 05/05/20 13:00 05/05/20 13:54 Gabapentin 100 Mg Capsule PO 100 mg TID VALDEMAR Administration Heparin Sodium (Porcine) 5,000 units 05/05/20 21:00 Heparin Sodium 5,000 Units/Ml Vial SUB-Q Q12HR ON LICENSE OF [facility] Hydralazine HCl 50 mg 05/05/20 13:00 05/05/20 12:27 Hydralazine Hcl 50 Mg Tablet PO 50 mg TID VALDEMAR Administration Vancomycin HCl 500 mg in 100 mls @ 100 mls/hr 05/05/20 06:59 Vancomycin 500 Mg/D5w 100 Ml IVPB PRN PRN PHARMACY PROTOCOL Ceftriaxone Sodium/Dextrose 1 gm in 50 mls @ 100 mls/hr 05/05/20 16:00 Rocephin 1 Gm/D5w 50 Ml I
--- NOTE | 2020-05-05 15:55 | CONS_ITS ---
DATE OF CONSULTATION: 05/05/2020 REASON FOR CONSULTATION: Leukocytosis. HISTORY OF PRESENT ILLNESS: 64-year-old female who is a very poor historian. Her record indicates that she was at [facility] sometime in February, probably for an extended time, due to coronavirus infection and acute renal failure. She has been on at least intermittent dialysis since then and our record indicates there is still hope that she will have recovery in her renal function. She has a PermCath or similar device in her right IJ, and the patient has no recollection how long it has been present nor who placed it. She was here in the hospital in March with chest pain. She was noted to have leukocytosis during that entire admission and was given empiric antibiotics. The etiology for the chest pain is not specified. While here, she also was found to have hepatitis C positive antibody and a positive RNA for the same, but no treatment was undertaken. She returned to the hospital here early this morning when anemia was found. She also had chest pain in the right chest in the area of her catheter. Currently, she denies any pain to me whatsoever. No cough, shortness of breath, sputum production, drainage from this catheter site, or dizziness. ALLERGIES: NONE KNOWN. HABITS: No tobacco. No alcohol. PRESENT MEDICATIONS: No immunosuppressants. PAST MEDICAL HISTORY: In addition to the above, BTL, tonsillectomy, peripheral neuropathy, hypertension, hyperlipidemia, stroke, diabetes, and asthma. REVIEW OF SYSTEMS: 14-point review attempted, but not obtainable in a comprehensive fashion from the patient due to memory loss, though she is able to answer questions about her current symptoms. She still urinates abundantly. FAMILY HISTORY: Not pertinent to her present illness. SOCIAL HISTORY: shelter resident most recently, previously at home before coronavirus. PHYSICAL EXAMINATION: GENERAL: A chronically ill-appearing female, who appears much older than her actual age. No respiratory distress. VITAL SIGNS: Afebrile, 110/56, 109, 16, 97% room air. SKIN: Poor turgor. No rashes. EENT: The conjunctivae are normal though leslie. No petechiae. Pupils equal, round. The teeth are in fair repair. Mucous membranes dry. No thrush. NECK: No masses, thyromegaly, or meningismus. LUNGS: Clear to auscultation. CHEST: No drainage or tenderness at the catheter exit site just superior to the clavicle, right side. CARDIAC: Distant S1, S2. Tachycardic. No murmurs or gallops. Pulses trace and equal. ABDOMEN: Nontender, nondistended. No masses. No organomegaly. EXTREMITIES: Marked muscle wasting. No clubbing, cyanosis, or edema. LABORATORY DATA: Blood cultures from the and , all no growth final as were urine cultures. These have been repeated now. White blood cell count in the teens during the month of March when checked and now it is 21.1, which is 10 points higher than 04/23. Hemoglobin 6.5, platelets are 535. She has a BUN 47, creatinine 3.7, glucose 108, AST 51, ALT 18, alkaline phosphatase 225, albumin low. Urinalysis with scant evidence for infection. Her surface antigen is nonreactive. Her hepatitis C viral load was log 6.90. Her core IgM nonreactive. RADIOLOGY: Chest x-ray with pulmonary edema. ASSESSMENT: 1. Anemia, noninfectious. 2. Lung infiltrates, could be residual of her coronavirus infection. She has no other findings for pneumonia. 3. Leukocytosis, appears to be chronic and may be physiologic in nature. Infectious possibilities could include line infection or subtle intraabdominal infection. RECOMMENDATIONS: 1. Ceftriaxone and vancomycin appropriate day 1. 2. If blood cultures reveal no growth and she is clini
[2020-05-05 17:46] LABS: Glucose Point of Care 128 (65-105)
[2020-05-05 18:54] LABS: Hematocrit 24.5 % (37.0-47.0); Hemoglobin 8.2 g/dL (12.0-15.0)
[2020-05-05] MEDS: HEPARIN SODIUM 5,000 UNITS/ML VIAL 5000 UNITS SUB-Q (19:58)
[2020-05-05] MEDS: ATORVASTATIN 40 MG TABLET PO (19:58)
[2020-05-05 21:26] LABS: Glucose Point of Care 195 (65-105)
[2020-05-06] VITALS (8 sets, daily range): BP systolic 93–180; BP diastolic 51–62; PULSE 105–112; RESP 16–20; TEMP 36.9–37.4; O2SAT 93–98
[2020-05-06 05:53] LABS: Hematocrit 22.5 % (37.0-47.0); Hemoglobin 7.6 g/dL (12.0-15.0); Mean Corpuscular HGB Conc 33.8 g/dl (32-36); Mean Corpuscular Hemoglobin 29.2 pg (26-34); Mean Corpuscular Volume 86.5 fl (80-100); Mean Platelet Volume 10.2 fl (7.4-10.4); Platelet Count Result 486 k/mm3 (150-375); Red Cell Distribution Width 16.5 % (11.5-14.5); White Blood Count 20.1 K/mm3 (4.5-10.0)
[2020-05-06 06:08] LABS: Anion Gap 8 mmol/L (8-16); Blood Urea Nitrogen 50 mg/dL (7-17); Carbon Dioxide 22 mmol/L (22-30); Chloride 110 mmol/L (98-107); Estimated CRCL calculation 9 ml/min; Estimated Glomerular Filt Rate 15; Glucose 128 mg/dL (65-105); Potassium 3.1 mmol/L (3.4-5.0); Sodium 140 mmol/L (137-145)
[2020-05-06 07:56] LABS: Glucose Point of Care 129 (65-105)
[2020-05-06] MEDS: INSULIN ASPART (*BKC) 100 UNITS/ML SUB-Q ×4 (08:18→17:13)
[2020-05-06] MEDS: GABAPENTIN 100 MG CAPSULE PO ×3 (08:21→17:12)
[2020-05-06] MEDS: amLODIPine BESYLATE 5 MG TABLET 10 MG PO (08:21)
[2020-05-06] MEDS: levETIRAcetam ORAL SOL 500 MG/5 ML UDC PO ×2 (08:22→20:06)
[2020-05-06] MEDS: hydrALAZINE HCL 50 MG TABLET PO ×2 (08:29→17:16)
[2020-05-06] MEDS: lisinopriL 20 MG TABLET PO (08:29)
[2020-05-06] MEDS: ASPIRIN 81 MG ENTERIC TABLET PO (08:29)
[2020-05-06] MEDS: HEPARIN SODIUM 5,000 UNITS/ML VIAL 5000 UNITS SUB-Q ×2 (08:34→20:05)
--- NOTE | 2020-05-06 09:24 | PCOTNOTE ---
Attempted to see patient this am, however patient refused. No, I'll do that Monday. Oriented patient to day, and patient declined stating, Well I have other things to do. Thank you, baby.
--- NOTE | 2020-05-06 11:24 | PM.IMPN ---
Progress Note: A&P Assessment and Plan (1) Anemia: Code(s): D64.9 - Anemia, unspecified Status: Acute Assessment and Plan: Sp blood transfusion Hb stil around 7 may benefit from epogen shot (2) ESRD (end stage renal disease): Code(s): N18.6 - End stage renal disease Status: Acute Assessment and Plan: Pt seen by nephrology, continue recommendations (3) Sepsis: Code(s): A41.9 - Sepsis, unspecified organism Status: Acute Assessment and Plan: BC and UC pending pt started on iv vancomycin and iv zosyn (4) Hepatitis C: Code(s): B19.20 - Unspecified viral hepatitis C without hepatic coma Status: Chronic (5) Central line infection: Code(s): T80.219A - Unspecified infection due to central venous catheter, initial encounter Status: Acute Assessment and Plan: Pt started on iv vancomycin and zosyn, I [place] [id number], will consult surgery for central line change out and inspection of digits Subjective Date/time seen: 05/06/20 11:24 Interval history: Jon is a 64 year old female admitted with chest pain. Pt had labs drawn in [facility], which showed her Hb at 6. Pt also complains of mild intermittent chest pain, troponin ordered but suggested to nurse chest pain maybe due to severe anaemia. Patient had recently started dialysis after a extended COVID 19 illness at [facility]. Pt needs to have dialysis today. Pt may need central line changed out looks mucky. Pt has gangrenous finger nails secondary to prolonged covid infection Review of Systems Review of Systems: All systems reviewed & are unremarkable except as noted in HPI and below Exam Const: General: other (thin appearing cachexic elderly lady ) Eyes: Pupils: Equal, round and reactive pupils present Neck: Neck: supple Chest: Breast/axilla inspection: Other (central line in situ, not clean ) Resp: Effort & Inspection: normal respiratory effort Auscultation: clear to auscultation bilaterally Cardio: Jugular venous distension: no JVD Rhythm: regular rhythm Heart sounds: S1 normal heart sound present and S2 normal heart sound present GI: Inspection: normal to inspection Auscultation: normal bowel sounds Skin: General skin exam: normal color and dry skin Neuro: Cranial nerves: Yes CN's II-XII intact bilaterally and Yes Equal, round and reactive pupils present Cognition (Neuro): normal cognition Speech: normal speech Motor exam (neuro): 5/5 motor strength present throughout Extrem: General: no pedal edema (Gangrenous digits in both hands ) Psych: Appearance: grossly normal Mental Status: mental status grossly normal Objective Data Vital Signs Vital Signs: Vital Signs - 24 hr 05/05/20 12:00 05/05/20 14:00 05/05/20 16:00 Temperature 37.2 C Pulse Rate 110 H 109 H 116 H Respiratory Rate 16 Blood Pressure 110/56 L Pulse Oximetry 97 05/05/20 20:00 05/05/20 21:40 05/06/20 00:00 Temperature 37.0 C Pulse Rate 112 H 112 H 110 H Respiratory Rate 20 Blood Pressure 98/53 L Pulse Oximetry 96 05/06/20 04:00 05/06/20 06:00 05/06/20 08:00 Temperature 37.4 C Pulse Rate 111 H 108 H 105 H Respiratory Rate 16 Blood Pressure 111/54 L Pulse Oximetry 93 Intake/Output Intake/Output: Intake & Output 05/03/20 05/04/20 05/05/20 05/06/20 23:59 23:59 23:59 23:59 Intake Total 1810 290 Output Total 100 Balance 1710 290 Meds/Results Medications: Active Medications Generic Name Dose Route Start Last Admin Trade Name Freq PRN Reason Stop Dose Admin Amlodipine Besylate 10 mg 05/05/20 11:25 05/06/20 08:21 Amlodipine Besylate 5 Mg Tablet PO 10 mg DAILY VALDEMAR Administration Aspirin 81 mg 05/05/20 11:25 05/06/20 08:29 Aspirin 81 Mg Enteric Tablet PO 81 mg DAILY VALDEMAR Administration Atorvastatin Calcium 40 mg 05/05/20 21:00 05/05/20 19:58 Atorvastatin 40 M
[2020-05-06 11:45] LABS: Glucose Point of Care 175 (65-105)
--- NOTE | 2020-05-06 12:09 | PM.PNNEP ---
Progress Note: A&P Assessment and Plan (1) ARELIS (acute kidney injury): Code(s): N17.9 - Acute kidney failure, unspecified Status: Acute Assessment and Plan: likely due to ATN (cardiac arrest, hemodynamic instability) and possibly COVID-19 from recent/protracted [facility] hospitalization unfortunately, requiring renal replacement therapy/dialysis at this time - no evidence of recovery HD today (assuming she agrees to it...) however, if patient continues to refuse to do dialysis, may need to discuss with family regional intermodal truck driver goals of care (2) Anemia: Code(s): D64.9 - Anemia, unspecified Status: Acute Assessment and Plan: partly related to ARELIS/ARF as well as missed doses of Epogen (since she is refusing dialysis) follow trend of H/H s/p PRBC transfusion (3) Leukocytosis: Code(s): D72.829 - Elevated white blood cell count, unspecified Status: Acute Assessment and Plan: unclear etiology Infectious Disease recommendations noted follow trend of WBC (4) Hypertension: Code(s): I10 - Essential (primary) hypertension Status: Chronic Assessment and Plan: reasonable control at this time follow hemodynamics (5) Diabetes: Code(s): E11.9 - Type 2 diabetes mellitus without complications Status: Chronic Assessment and Plan: formal diagnosis(?) follow accuchecks on SSI Will continue to follow. Subjective Date/time seen: 05/06/20 12:09 No apparent distress voiced at this time - apparently stated earlier that she was leaving the hospital but has since changed her mind; when I informed of her scheduled dialysis treatment today, she told she would not be doing it and would not elaborate why; no events/issues overnight or earlier today. Exam Narrative: Exam Narrative: General: this AA female in NAD Heart: normal S1 and S2; no rub Lungs: clear to auscultation Abdomen: soft, nontender, nondistended, positive bowel sounds Extremities: no cyanosis or clubbing; no edema Skin: warm and dry Objective Data Vital Signs Vital Signs: Vital Signs Temp Pulse Resp BP Pulse Ox 05/06/20 08:00 105 H 05/06/20 06:00 37.4 C 108 H 16 111/54 L 93 05/06/20 04:00 111 H 05/06/20 00:00 110 H 05/05/20 21:40 37.0 C 112 H 20 98/53 L 96 05/05/20 20:00 112 H Intake/Output Intake/Output: Intake & Output 05/03/20 05/04/20 05/05/20 05/06/20 23:59 23:59 23:59 23:59 Intake Total 1810 880 Output Total 100 Balance 1710 880 Meds/Results Medications: Active Medications Generic Name Dose Route Start Last Admin Trade Name Freq PRN Reason Stop Dose Admin Amlodipine Besylate 10 mg 05/05/20 11:25 05/06/20 08:21 Amlodipine Besylate 5 Mg Tablet PO 10 mg DAILY VALDEMAR Administration Amoxicillin/Clavulanate Potassium 1 tablet 05/06/20 22:00 Amoxicillin/Clavulanate K 500-125 Mg Tab PO TID VALDEMAR Aspirin 81 mg 05/05/20 11:25 05/06/20 08:29 Aspirin 81 Mg Enteric Tablet PO 81 mg DAILY VALDEMAR Administration Atorvastatin Calcium 40 mg 05/05/20 21:00 05/05/20 19:58 Atorvastatin 40 Mg Tablet PO 40 mg HS VALDEMAR Administration Epoetin Giuseppe-epbx 10,000 units 05/06/20 23:48 Epoetin Giuseppe-Epbx 10,000 Units/Ml Vial IV PUSH 05/06/20 23:49 ONCE ONE Gabapentin 100 mg 05/05/20 13:00 05/06/20 17:12 Gabapentin 100 Mg Capsule PO 100 mg TID VALDEMAR Administration Heparin Sodium (Porcine) 5,000 units 05/05/20 21:00 05/06/20 08:34 Heparin Sodium 5,000 Units/Ml Vial SUB-Q 5,000 units Q12HR VALDEMAR Administration Hydralazine HCl 50 mg 05/05/20 13:00 05/06/20 17:16 Hydralazine Hcl 50 Mg Tablet PO 50 mg TID VALDEMAR Administration Vancomycin HCl 500 mg in 100 mls @ 100 mls/hr 05/05/20 06:59 Vancomycin 500 Mg/D5w 100 Ml IVPB PRN PRN PHARMACY PROTOCOL Ceftriaxone Sodium/Dextrose 1 gm in 50 mls @ 100 mls/hr 05/05/20 16:00 05/06/20 16:56 Hector
--- NOTE | 2020-05-06 13:24 | PC.NURSE ---
Patient removed IV. Dr Cloud notified and okayed Pt not to have a new one placed.
--- NOTE | 2020-05-06 15:35 | PCPTNOTE ---
PT attempted to see patient for PT today, however patient refused. Patient states all I want to do is go home! PT will continue to follow per plan of care.
[2020-05-06 16:59] LABS: Glucose Point of Care 237 (65-105)
--- NOTE | 2020-05-06 18:31 | PC.NURSE ---
1750 patient refused to go to dialysis. Patient stated she was not going anywhere other than home and to get the hell out of her room . Also stated get the fuck our of my room, bye . Tried explaining to the patient she needed to participate in dialysis to be able to get better and go home. Patient continued to refuse at this time. Dialysis nurse attempted to talk with patient. Patient stated she would try dialysis tomorrow.
[2020-05-06] MEDS: ATORVASTATIN 40 MG TABLET PO (20:03)
[2020-05-07] MEDS: AMOXICILLIN/CLAVULANATE K 500-125 MG TAB 1 TABLET PO ×4 (03:27→17:22)
[2020-05-07 06:00] VITALS: BP 146/67; PULSE 106; RESP 16; TEMP 37.1; O2SAT 94
[2020-05-07 06:36] LABS: Estimated CRCL calculation 10 ml/min; Estimated Glomerular Filt Rate 15
[2020-05-07 07:48] LABS: Glucose Point of Care 145 (65-105)
[2020-05-07] MEDS: INSULIN ASPART (*BKC) 100 UNITS/ML SUB-Q ×3 (09:07→17:22)
[2020-05-07] MEDS: hydrALAZINE HCL 50 MG TABLET PO ×3 (09:09→17:22)
[2020-05-07] MEDS: lisinopriL 20 MG TABLET PO (09:10)
[2020-05-07] MEDS: ASPIRIN 81 MG ENTERIC TABLET PO (09:10)
[2020-05-07] MEDS: GABAPENTIN 100 MG CAPSULE PO ×3 (09:10→17:22)
[2020-05-07] MEDS: amLODIPine BESYLATE 5 MG TABLET 10 MG PO (09:10)
[2020-05-07] MEDS: levETIRAcetam ORAL SOL 500 MG/5 ML UDC PO ×2 (09:11→20:19)
[2020-05-07] MEDS: HEPARIN SODIUM 5,000 UNITS/ML VIAL 5000 UNITS SUB-Q ×2 (09:11→20:19)
[2020-05-07 11:55] LABS: Glucose Point of Care 181 (65-105)
--- NOTE | 2020-05-07 12:02 | PM.IMPN ---
Progress Note: A&P Assessment and Plan (1) Anemia: Code(s): D64.9 - Anemia, unspecified Status: Acute Assessment and Plan: Sp blood transfusion Hb stil around 7 may benefit from epogen shot (2) ESRD (end stage renal disease): Code(s): N18.6 - End stage renal disease Status: Acute Assessment and Plan: Pt seen by nephrology, continue recommendations. pt due to have dialysis today. (3) Sepsis: Code(s): A41.9 - Sepsis, unspecified organism Status: Acute Assessment and Plan: BC and UC pending pt started on iv vancomycin and augmentin, ID rounding, Wcc improving. (4) Hepatitis C: Code(s): B19.20 - Unspecified viral hepatitis C without hepatic coma Status: Chronic (5) Central line infection: Code(s): T80.219A - Unspecified infection due to central venous catheter, initial encounter Status: Acute Assessment and Plan: Pt started on iv vancomycin, ID on board, wcc improving, will consult surgery for central line change out and inspection of digits Subjective Date/time seen: 05/07/20 12:02 Interval history: Jon is a 64 year old female admitted with chest pain. Pt had labs drawn in [facility], which showed her Hb at 6. Pt also complains of mild intermittent chest pain, troponin ordered but suggested to nurse chest pain maybe due to severe anaemia. Patient had recently started dialysis after a extended COVID [address] [facility]. Pt needs to have dialysis today. Pt may need central line changed out looks mucky. Pt has gangrenous finger nails secondary to prolonged covid infection. Pt due to have dialysis today. Review of Systems Review of Systems: All systems reviewed & are unremarkable except as noted in HPI and below Exam Const: General: other (thin appearing cachexic elderly lady ) Eyes: Pupils: Equal, round and reactive pupils present Neck: Neck: supple Chest: Breast/axilla inspection: Other (central line in situ, not clean ) Resp: Effort & Inspection: normal respiratory effort Auscultation: clear to auscultation bilaterally Cardio: Jugular venous distension: no JVD Rhythm: regular rhythm Heart sounds: S1 normal heart sound present and S2 normal heart sound present GI: Inspection: normal to inspection Auscultation: normal bowel sounds Skin: General skin exam: normal color and dry skin Neuro: Cranial nerves: Yes CN's II-XII intact bilaterally and Yes Equal, round and reactive pupils present Cognition (Neuro): normal cognition Speech: normal speech Motor exam (neuro): 5/5 motor strength present throughout Extrem: General: no pedal edema (Gangrenous digits in both hands ) Psych: Appearance: grossly normal Mental Status: mental status grossly normal Objective Data Vital Signs Vital Signs: Vital Signs - 24 hr 05/06/20 14:00 05/06/20 17:17 05/06/20 20:00 Temperature 36.9 C Pulse Rate 105 H 105 H Respiratory Rate 16 16 Blood Pressure 93/51 L 155/62 H Pulse Oximetry 98 98 05/06/20 22:00 05/07/20 06:00 Temperature 37.4 C 37.1 C Pulse Rate 112 H 106 H Respiratory Rate 20 16 Blood Pressure 180/51 H 146/67 H Pulse Oximetry 94 94 Intake/Output Intake/Output: Intake & Output 05/04/20 05/05/20 05/06/20 05/07/20 23:59 23:59 23:59 23:59 Intake Total 1810 880 520 Output Total 100 Balance 1710 880 520 Meds/Results Medications: Active Medications Generic Name Dose Route Start Last Admin Trade Name Freq PRN Reason Stop Dose Admin Amlodipine Besylate 10 mg 05/05/20 11:25 05/07/20 09:10 Amlodipine Besylate 5 Mg Tablet PO 10 mg DAILY VALDEMAR Administration Amoxicillin/Clavulanate Potassium 1 tablet 05/06/20 22:00 05/07/20 09:09 Amoxicillin/Clavulanate K 500-125 Mg Tab PO 1 tablet TID VALDEMAR Administration Aspirin 81 mg 05/05/20 11:25 05/07/20 09:10 Aspirin 81 Mg Enteric Tablet PO 81 mg DAILY VALDEMAR Administration Atorvastatin Calci
[2020-05-07 14:00] VITALS: BP 152/47; PULSE 117; RESP 16; TEMP 36.9; O2SAT 96
--- NOTE | 2020-05-07 15:51 | PM.PNNEP ---
Progress Note: A&P Assessment and Plan (1) AERLIS (acute kidney injury): Code(s): N17.9 - Acute kidney failure, unspecified Status: Acute Assessment and Plan: likely due to ATN (cardiac arrest, hemodynamic instability) and possibly COVID-19 from recent/protracted [facility] hospitalization unfortunately, requiring renal replacement therapy/dialysis at this time - no evidence of recovery patient refusing to do hemodialysis as an outpatient as well as inpatient however, if patient continues to refuse to do dialysis, may need to discuss with family terminal operator goals of care (2) Anemia: Code(s): D64.9 - Anemia, unspecified Status: Acute Assessment and Plan: partly related to ARELIS/ARF as well as missed doses of Epogen (since she is refusing dialysis) follow trend of H/H s/p PRBC transfusion (3) Leukocytosis: Code(s): D72.829 - Elevated white blood cell count, unspecified Status: Acute Assessment and Plan: unclear etiology Infectious Disease recommendations noted follow trend of WBC (4) Hypertension: Code(s): I10 - Essential (primary) hypertension Status: Chronic Assessment and Plan: reasonable control at this time follow hemodynamics (5) Diabetes: Code(s): E11.9 - Type 2 diabetes mellitus without complications Status: Chronic Assessment and Plan: formal diagnosis(?) follow accuchecks on SSI Discussed situation with patient's nurse. Will continue to follow. Subjective Date/time seen: 05/07/20 15:51 Continue to refuse dialysis treatment and won't allow nursing to place IV (so not getting IV antibiotics); when I ask her is she will do her dialysis treatment, she states she will do it when she goes home but I told her I do not know if she will be discharged home, she got upset with me. Exam Narrative: Exam Narrative: General: this AA female in NAD Heart: normal S1 and S2; no rub Lungs: clear to auscultation Abdomen: soft, nontender, nondistended, positive bowel sounds Extremities: no cyanosis or clubbing; no edema Skin: warm and dry Objective Data Vital Signs Vital Signs: Vital Signs Temp Pulse Resp BP Pulse Ox 05/07/20 14:00 36.9 C 117 H 16 152/47 H 96 05/07/20 06:00 37.1 C 106 H 16 146/67 H 94 05/06/20 22:00 37.4 C 112 H 20 180/51 H 94 05/06/20 20:00 105 H 16 98 Intake/Output Intake/Output: Intake & Output 05/04/20 05/05/20 05/06/20 05/07/20 23:59 23:59 23:59 23:59 Intake Total 1810 880 820 Output Total 100 Balance 1710 880 820 Meds/Results Medications: Active Medications Generic Name Dose Route Start Last Admin Trade Name Freq PRN Reason Stop Dose Admin Acetaminophen 650 mg 05/07/20 17:35 Acetaminophen 325 Mg Tablet PO Q8H PRN Mild Pain (1-3) or Fever Amlodipine Besylate 10 mg 05/05/20 11:25 05/07/20 09:10 Amlodipine Besylate 5 Mg Tablet PO 10 mg DAILY VALDEMAR Administration Amoxicillin/Clavulanate Potassium 1 tablet 05/06/20 22:00 05/07/20 17:22 Amoxicillin/Clavulanate K 500-125 Mg Tab PO 1 tablet TID VALDEMAR Administration Aspirin 81 mg 05/05/20 11:25 05/07/20 09:10 Aspirin 81 Mg Enteric Tablet PO 81 mg DAILY VALDEMAR Administration Atorvastatin Calcium 40 mg 05/05/20 21:00 05/06/20 20:03 Atorvastatin 40 Mg Tablet PO 40 mg HS VALDEMAR Administration Gabapentin 100 mg 05/05/20 13:00 05/07/20 17:22 Gabapentin 100 Mg Capsule PO 100 mg TID VALDEMAR Administration Heparin Sodium (Porcine) 5,000 units 05/05/20 21:00 05/07/20 09:11 Heparin Sodium 5,000 Units/Ml Vial SUB-Q 5,000 units Q12HR VALDEMAR Administration Hydralazine HCl 50 mg 05/05/20 13:00 05/07/20 17:22 Hydralazine Hcl 50 Mg Tablet PO 50 mg TID VALDEMAR Administration Albumin Human 50 mls @ 999 mls/hr 05/06/20 06:47 Albutein IVPB 06/05/20 06:48 Q10M PRN HYPOTENSION Vancomycin HCl 750 mg in 250 mls @ 250 mls/
--- NOTE | 2020-05-07 15:55 | PCOTNOTE ---
Attempted to see patient this pm, however upon entering patient was sleeping soundly and did not disturb for this reason.
[2020-05-07 16:27] LABS: SARS-CoV-2 RNA PCR Negative
[2020-05-07 16:43] VITALS: BP 117/64; PULSE 115; RESP 16; TEMP 37; O2SAT 95
[2020-05-07 17:12] LABS: Glucose Point of Care 169 (65-105)
[2020-05-07] MEDS: ACETAMINOPHEN 325 MG TABLET 650 MG PO (17:54)
[2020-05-07] MEDS: ATORVASTATIN 40 MG TABLET PO (20:19)
[2020-05-07 22:00] VITALS: BP 98/65; PULSE 108; RESP 16; TEMP 37; O2SAT 95
[2020-05-07 22:27] LABS: Glucose Point of Care 179 (65-105)
[2020-05-08] MEDS: ACETAMINOPHEN 325 MG TABLET 650 MG PO (05:01)
[2020-05-08 05:21] VITALS: BP 171/72; PULSE 119; RESP 20; TEMP 37.4; O2SAT 95
--- NOTE | 2020-05-08 05:31 | PC.NURSE ---
pt yelling out around 0515, when I went to check on her she said that her chest is hurting down towards her left side, but continually said it was the dialysis port (which is on the right), pt previously removed IV and said she wanted to take out port as well, I distracted her with the TV and brushing her hair. She was running a 99.0 temp, and although she knows she's in the hospital, she states we are keeping her here and not doing shit for her .. any attempt at rationalizing with her made her angry. She continues to refuse the concept of getting dialysis later today, and says she plans on calling for a ride to come get her. I gave her the prescribed PRN acetaminophen and will check on her for her pain reassessment. -KYLE TEE
[2020-05-08 06:03] LABS: Hematocrit 24.5 % (37.0-47.0); Hemoglobin 8.1 g/dL (12.0-15.0); Mean Corpuscular HGB Conc 33.1 g/dl (32-36); Mean Corpuscular Hemoglobin 28.6 pg (26-34); Mean Corpuscular Volume 86.6 fl (80-100); Mean Platelet Volume 10.1 fl (7.4-10.4); Platelet Count Result 584 k/mm3 (150-375); Red Blood Count 2.83 M/mm3 (4.2-5.4); Red Cell Distribution Width 17.2 % (11.5-14.5); White Blood Count 22.5 K/mm3 (4.5-10.0)
[2020-05-08 06:26] VITALS: BP 124/68
[2020-05-08 07:09] LABS: Anion Gap 10 mmol/L (8-16); Blood Urea Nitrogen 54 mg/dL (7-17); Calcium 8.5 mg/dL (8.4-10.2); Carbon Dioxide 21 mmol/L (22-30); Chloride 110 mmol/L (98-107); Estimated CRCL calculation 10 ml/min; Estimated Glomerular Filt Rate 16; Glucose 235 mg/dL (65-105); Sodium 141 mmol/L (137-145)
[2020-05-08 07:11] LABS: Potassium 3.6 mmol/L (3.4-5.0)
[2020-05-08 07:30] LABS: Glucose Point of Care 212 (65-105)
[2020-05-08 08:00] VITALS: PULSE 119; RESP 20; O2SAT 95
--- NOTE | 2020-05-08 08:33 | PCOTNOTE ---
Attempted to see patient for OT. Patient initially agreeable to transfer out of bed, perform grooming. However, while preparing to get patient up, patient verbalized statements in opposition of initial plan. Patient encouraged to participate, patient asked what day it is and refused to participate until Monday. Due to patient's uncooperativeness, recommending reduce patient's visit frequency until participation improves. Will continue plan of care under new frequency.
[2020-05-08] MEDS: INSULIN ASPART (*BKC) 100 UNITS/ML SUB-Q ×5 (08:44→17:39)
[2020-05-08] MEDS: AMOXICILLIN/CLAVULANATE K 500-125 MG TAB 1 TABLET PO ×3 (08:45→17:32)
[2020-05-08] MEDS: levETIRAcetam ORAL SOL 500 MG/5 ML UDC PO ×2 (08:45→20:47)
[2020-05-08] MEDS: hydrALAZINE HCL 50 MG TABLET PO ×3 (08:45→17:31)
[2020-05-08] MEDS: amLODIPine BESYLATE 5 MG TABLET 10 MG PO (08:45)
[2020-05-08] MEDS: lisinopriL 20 MG TABLET PO (08:45)
[2020-05-08] MEDS: GABAPENTIN 100 MG CAPSULE PO ×3 (08:46→17:31)
[2020-05-08] MEDS: ASPIRIN 81 MG ENTERIC TABLET PO (08:46)
[2020-05-08] MEDS: HEPARIN SODIUM 5,000 UNITS/ML VIAL 5000 UNITS SUB-Q ×2 (08:46→20:47)
--- NOTE | 2020-05-08 09:09 | PC.NURSE ---
while pt was taking arm out of sweater she yelled out. she had torn a finger nail off her left hand 3rd digit. I wrapped it in gauze. pt wasnt in pain. Doctor Ai notified.Will continue to monitor
--- NOTE | 2020-05-08 10:29 | PCPTNOTE ---
Attempted PT treatment. Pt refusing therapy, states she's going home and doesn't want to do anything. Explained importance of therapy and she still refused. States she'll start on Monday w/ therapy.
[2020-05-08 11:30] LABS: Glucose Point of Care 248 (65-105)
--- NOTE | 2020-05-08 11:56 | PCNFU ---
Nutrition Follow-Up Complete: Underweight as related to BMI less than 18.5 as evidenced by greater than 7.5% weight loss. Goal; Meet estimated nutritional needs Patient is continues to progress towards goal. We will continue current goal. Pt current nutrition is CC with frozen nutritional treat ice cream BID and Glucerna shakes BID Last recorded weight is 44 kg, up from 39.9 kg on admit. Bowel Motility:+BM 05/07. Labs Reviewed: Glu 235,Cr 3.5,BUN 54,GFR 16 Meds Noted:Heparin,NovoLog, Aspirin,Keppra,Prinivil,Norvasc. Additional Notes: Nutrition follow up. Patient is eating greater than 75% of meals. She continues to drink her Glucerna shakes providing an additional 220 kcals and 10 gms protein as well as frozen nutritional treats which are providing an additional 300 kcals and 9 gms protein. Agree with diet orders. Monitoring: weight, labs, oral intake every 5 days.
--- NOTE | 2020-05-08 12:22 | PCOTNOTE ---
Patient OT frequency reduced to 2-3x/wk due to decreased participation with therapy.
--- NOTE | 2020-05-08 13:30 | P.PNNP_ITS ---
Progress Note: A&P Assessment and Plan (1) ARELIS (acute kidney injury): Code(s): N17.9 - Acute kidney failure, unspecified Status: Acute Assessment and Plan: * likely due to ATN (cardiac arrest, hemodynamic instability) and possibly COVID-19 from recent/protracted [facility] hospitalization * unfortunately, requiring renal replacement therapy/dialysis at this time - no evidence of recovery * patient refusing to do hemodialysis as an outpatient as well as inpatient at this time * if patient continues to refuse to do dialysis, may need to discuss with family [place] [facility] goals of care (2) Anemia: Code(s): D64.9 - Anemia, unspecified Status: Acute Assessment and Plan: * partly related to ARELIS/ARF as well as missed doses of Epogen (since she is refusing dialysis) * follow trend of H/H * s/p PRBC transfusion (3) Leukocytosis: Code(s): D72.829 - Elevated white blood cell count, unspecified Status: Acute Assessment and Plan: * unclear etiology * Infectious Disease recommendations noted * follow trend of WBC (4) Hypertension: Code(s): I10 - Essential (primary) hypertension Status: Chronic Assessment and Plan: * reasonable control at this time * follow hemodynamics (5) Diabetes: Code(s): E11.9 - Type 2 diabetes mellitus without complications Status: Chronic Assessment and Plan: * formal diagnosis(?) * follow accuchecks * on SSI Discussed situation with Dr. Yun as well with case management. Will continue to follow. Subjective Date/time seen: 05/08/20 13:30 Patient seems in no apparent distress at the time of my visit; continues to refuse dialysis and repeated states she will only due dialysis is she is allowed to go home; no other acute issues/events overnight or earlier this AM. Exam Narrative: Exam Narrative: General: this AA female in NAD Heart: normal S1 and S2; no rub Lungs: clear to auscultation Abdomen: soft, nontender, nondistended, positive bowel sounds Extremities: no cyanosis or clubbing; no edema Skin: warm and intact Objective Data Vital Signs Vital Signs: Vital Signs Temp Pulse Resp BP Pulse Ox 05/08/20 08:00 119 H 20 95 05/08/20 06:26 124/68 05/08/20 05:21 37.4 C 119 H 20 171/72 H 95 05/07/20 22:00 37.0 C 108 H 16 98/65 L 95 05/07/20 16:43 37.0 C 115 H 16 117/64 95 05/07/20 14:00 36.9 C 117 H 16 152/47 H 96 Intake/Output Intake/Output: Intake & Output 05/05/20 05/06/20 05/07/20 05/08/20 23:59 23:59 23:59 23:59 Intake Total 3664 107 1893 370 Output Total 100 200 Balance 8930 358 2527 170 Meds/Results Medications: Active Medications Generic Name Dose Route Start Last Admin Trade Name Freq PRN Reason Stop Dose Admin Acetaminophen 650 mg 05/07/20 17:35 05/08/20 05:01 Acetaminophen 325 Mg Tablet PO 650 mg Q8H PRN Administration Mild Pain (1-3) or Fever Amlodipine Besylate 10 mg 05/05/20 11:25 05/08/20 08:45 Amlodipine Besylate 5 Mg Tablet PO 10 mg DAILY VALDEMAR Administration Amoxicillin/Clavulanate Potassium 1 tablet 05/06/20 22:00 05/08/20 13:24 Amoxicillin/Clavulanate K 500-125 Mg Tab PO 1 tablet TID VALDEMAR Admin
--- NOTE | 2020-05-08 13:30 | PM.PNNEP ---
Progress Note: A&P Assessment and Plan (1) ARELIS (acute kidney injury): Code(s): N17.9 - Acute kidney failure, unspecified Status: Acute Assessment and Plan: likely due to ATN (cardiac arrest, hemodynamic instability) and possibly COVID-19 from recent/protracted [facility] hospitalization unfortunately, requiring renal replacement therapy/dialysis at this time - no evidence of recovery patient refusing to do hemodialysis as an outpatient as well as inpatient at this time if patient continues to refuse to do dialysis, may need to discuss with family residential goals of care (2) Anemia: Code(s): D64.9 - Anemia, unspecified Status: Acute Assessment and Plan: partly related to ARELIS/ARF as well as missed doses of Epogen (since she is refusing dialysis) follow trend of H/H s/p PRBC transfusion (3) Leukocytosis: Code(s): D72.829 - Elevated white blood cell count, unspecified Status: Acute Assessment and Plan: unclear etiology Infectious Disease recommendations noted follow trend of WBC (4) Hypertension: Code(s): I10 - Essential (primary) hypertension Status: Chronic Assessment and Plan: reasonable control at this time follow hemodynamics (5) Diabetes: Code(s): E11.9 - Type 2 diabetes mellitus without complications Status: Chronic Assessment and Plan: formal diagnosis(?) follow accuchecks on SSI Discussed situation with Dr. Yun as well with case management. Will continue to follow. Subjective Date/time seen: 05/08/20 13:30 Patient seems in no apparent distress at the time of my visit; continues to refuse dialysis and repeated states she will only due dialysis is she is allowed to go home; no other acute issues/events overnight or earlier this AM. Exam Narrative: Exam Narrative: General: this AA female in NAD Heart: normal S1 and S2; no rub Lungs: clear to auscultation Abdomen: soft, nontender, nondistended, positive bowel sounds Extremities: no cyanosis or clubbing; no edema Skin: warm and intact Objective Data Vital Signs Vital Signs: Vital Signs Temp Pulse Resp BP Pulse Ox 05/08/20 08:00 119 H 20 95 05/08/20 06:26 124/68 05/08/20 05:21 37.4 C 119 H 20 171/72 H 95 05/07/20 22:00 37.0 C 108 H 16 98/65 L 95 05/07/20 16:43 37.0 C 115 H 16 117/64 95 05/07/20 14:00 36.9 C 117 H 16 152/47 H 96 Intake/Output Intake/Output: Intake & Output 05/05/20 05/06/20 05/07/20 05/08/20 23:59 23:59 23:59 23:59 Intake Total 8997 378 8236 370 Output Total 100 200 Balance 3256 056 0946 170 Meds/Results Medications: Active Medications Generic Name Dose Route Start Last Admin Trade Name Freq PRN Reason Stop Dose Admin Acetaminophen 650 mg 05/07/20 17:35 05/08/20 05:01 Acetaminophen 325 Mg Tablet PO 650 mg Q8H PRN Administration Mild Pain (1-3) or Fever Amlodipine Besylate 10 mg 05/05/20 11:25 05/08/20 08:45 Amlodipine Besylate 5 Mg Tablet PO 10 mg DAILY VALDEMAR Administration Amoxicillin/Clavulanate Potassium 1 tablet 05/06/20 22:00 05/08/20 13:24 Amoxicillin/Clavulanate K 500-125 Mg Tab PO 1 tablet TID VALDEMAR Administration Aspirin 81 mg 05/05/20 11:25 05/08/20 08:46 Aspirin 81 Mg Enteric Tablet PO 81 mg DAILY VALDEMAR Administration Atorvastatin Calcium 40 mg 05/05/20 21:00 05/07/20 20:19 Atorvastatin 40 Mg Tablet PO 40 mg HS VALDEMAR Administration Gabapentin 100 mg 05/05/20 13:00 05/08/20 13:24 Gabapentin 100 Mg Capsule PO 100 mg TID VALDEMAR Administration Heparin Sodium (Porcine) 5,000 units 05/05/20 21:00 05/08/20 08:46 Heparin Sodium 5,000 Units/Ml Vial SUB-Q 5,000 units Q12HR VALDEMAR Administration Hydralazine HCl 50 mg 05/05/20 13:00 05/08/20 13:23 Hydralazine Hcl 50 Mg Tablet PO 50 mg TID VALDEMAR Administration Albumin Human 50 mls @ 999 mls/hr 05/06/20 06:47 Albutein IVPB 0
--- NOTE | 2020-05-08 13:34 | PM.IMPN ---
Progress Note: A&P Assessment and Plan (1) Anemia: Code(s): D64.9 - Anemia, unspecified Status: Acute Assessment and Plan: Sp blood transfusion Hb still around 8 (2) ESRD (end stage renal disease): Code(s): N18.6 - End stage renal disease Status: Acute Assessment and Plan: Pt seen by nephrology, continue recommendations. pt due to have dialysis today. Pt refuses dialysis. (3) Sepsis: Code(s): A41.9 - Sepsis, unspecified organism Status: Acute Assessment and Plan: BC and UC pending pt started on iv vancomycin and augmentin, ID rounding, Wcc improving. (4) Hepatitis C: Code(s): B19.20 - Unspecified viral hepatitis C without hepatic coma Status: Chronic (5) Central line infection: Code(s): T80.219A - Unspecified infection due to central venous catheter, initial encounter Status: Acute Assessment and Plan: Pt started on iv vancomycin, ID on board, wcc improving, will consult surgery for central line change out and inspection of digits Subjective Date/time seen: 05/08/20 13:34 Interval history: Jon is a 64 year old female admitted with chest pain. Pt had labs drawn in [facility], which showed her Hb at 6. Pt also complains of mild intermittent chest pain, troponin ordered but suggested to nurse chest pain maybe due to severe anaemia. Patient had recently started dialysis after a extended COVID 19 illness at [facility]. Pt needs to have dialysis today. Pt may need central line changed out looks mucky. Pt has gangrenous finger nails secondary to prolonged covid infection. Pt due to have dialysis today. But is refusing, Wcc still high. Review of Systems Review of Systems: All systems reviewed & are unremarkable except as noted in HPI and below Exam Const: General: other (thin appearing cachexic elderly lady ) Eyes: Pupils: Equal, round and reactive pupils present Neck: Neck: supple Chest: Breast/axilla inspection: Other (central line in situ, not clean ) Resp: Effort & Inspection: normal respiratory effort Auscultation: clear to auscultation bilaterally Cardio: Jugular venous distension: no JVD Rhythm: regular rhythm Heart sounds: S1 normal heart sound present and S2 normal heart sound present GI: Inspection: normal to inspection Auscultation: normal bowel sounds Skin: General skin exam: normal color and dry skin Neuro: Cranial nerves: Yes CN's II-XII intact bilaterally and Yes Equal, round and reactive pupils present Cognition (Neuro): normal cognition Speech: normal speech Motor exam (neuro): 5/5 motor strength present throughout Extrem: General: no pedal edema (Gangrenous digits in both hands ) Psych: Appearance: grossly normal Mental Status: mental status grossly normal Objective Data Vital Signs Vital Signs: Vital Signs - 24 hr 05/07/20 14:00 05/07/20 16:43 05/07/20 22:00 Temperature 36.9 C 37.0 C 37.0 C Pulse Rate 117 H 115 H 108 H Respiratory Rate 16 16 16 Blood Pressure 152/47 H 117/64 98/65 L Pulse Oximetry 96 95 95 05/08/20 05:21 05/08/20 06:26 05/08/20 08:00 Temperature 37.4 C Pulse Rate 119 H 119 H Respiratory Rate 20 20 Blood Pressure 171/72 H 124/68 Pulse Oximetry 95 95 Intake/Output Intake/Output: Intake & Output 05/05/20 05/06/20 05/07/20 05/08/20 23:59 23:59 23:59 23:59 Intake Total 0417 012 5173 370 Output Total 100 200 Balance 1833 831 7656 170 Meds/Results Medications: Active Medications Generic Name Dose Route Start Last Admin Trade Name Freq PRN Reason Stop Dose Admin Acetaminophen 650 mg 05/07/20 17:35 05/08/20 05:01 Acetaminophen 325 Mg Tablet PO 650 mg Q8H PRN Administration Mild Pain (1-3) or Fever Amlodipine Besylate 10 mg 05/05/20 11:25 05/08/20 08:45 Amlodipine Besylate 5 Mg Tablet PO 10 mg DAILY VALDEMAR Administration Amoxicillin/Clavulanate Potassium 1 tablet 05/06/20 22:00 05/08/20 13:
[2020-05-08 14:00] VITALS: BP 150/56; PULSE 112; RESP 16; TEMP 36.9; O2SAT 98
--- NOTE | 2020-05-08 14:41 | PC.NURSE ---
Pt is complaining of pain. Offered Acetamenophen. Pt said that wont help her. I called Dr De Paz. New order recieved 50mg tramadol TID. prn
--- NOTE | 2020-05-08 16:52 | PC.NURSE ---
pt continues to refuse dialysis treatment. She was belligerent repeatedly saying , I don't need no damn doctor to tell her if she can go home or not. She repeatedly said she wants to go home. She also continually yelled for help. Myself and staff responded to her and asked her what she needed. She said , no one here is doing anything for her, she is going home one way or another!,
--- NOTE | 2020-05-08 16:59 | PC.NURSE ---
Called Dr. Cloud about Vancomycin dose since pt no longer had IV one day ago. Dr. Gray said ok to d/c vancomycin.
[2020-05-08 17:19] LABS: Glucose Point of Care 171 (65-105)
[2020-05-08] MEDS: traMADol HCL (*CRX) 50 MG TABLET PO (17:37)
[2020-05-08] MEDS: ATORVASTATIN 40 MG TABLET PO (20:47)
[2020-05-08 21:25] LABS: Glucose Point of Care 163 (65-105)
[2020-05-08 22:00] VITALS: BP 179/64; PULSE 122; RESP 16; TEMP 36.5; O2SAT 97
[2020-05-09] VITALS (21 sets, daily range): BP systolic 94–151; BP diastolic 48–64; PULSE 102–119; RESP 14–22; TEMP 36.6–38.4; O2SAT 90–96
--- NOTE | 2020-05-09 02:00 | PC.NURSE ---
Talked to patient about dialysis in hopes that she won't refuse it later today. She said she will do it, she promises . Her persistent complaint is that she wants to go home, I told her the quickest way to get on that track is to start allowing us to treat her if that is what she would like to do, she seems more open to allowing dialysis treatment and I will continue to bring it up in hopes of ultimately getting her healthy and home. -KYLE TEE
--- NOTE | 2020-05-09 07:31 | PCOTNOTE ---
Patient adamantly refuses participating with occupational therapy despite education on benefits of participating with therapy, discharging from occupational therapy at this time.
[2020-05-09 08:02] LABS: Glucose Point of Care 128 (65-105)
[2020-05-09] MEDS: levETIRAcetam ORAL SOL 500 MG/5 ML UDC PO ×2 (09:29→21:01)
[2020-05-09] MEDS: AMOXICILLIN/CLAVULANATE K 500-125 MG TAB 1 TABLET PO ×3 (09:30→16:48)
[2020-05-09] MEDS: hydrALAZINE HCL 50 MG TABLET PO ×2 (09:30→11:52)
[2020-05-09] MEDS: HEPARIN SODIUM 5,000 UNITS/ML VIAL 5000 UNITS SUB-Q ×2 (09:30→21:02)
[2020-05-09] MEDS: GABAPENTIN 100 MG CAPSULE PO ×3 (09:30→16:47)
[2020-05-09] MEDS: lisinopriL 20 MG TABLET PO (09:31)
[2020-05-09] MEDS: ASPIRIN 81 MG ENTERIC TABLET PO (09:31)
[2020-05-09] MEDS: INSULIN ASPART (*BKC) 100 UNITS/ML SUB-Q ×3 (09:31→18:11)
[2020-05-09] MEDS: amLODIPine BESYLATE 5 MG TABLET 10 MG PO (09:31)
--- NOTE | 2020-05-09 11:47 | PM.DS ---
DS: Admitting Diagnosis Admitting Diagnosis Admitting Diagnosis: Chest pain DS: Discharge Diagnosis Discharge Diagnosis (1) Anemia: Code(s): D64.9 - Anemia, unspecified Status: Acute Assessment and Plan: Sp blood transfusion Hb still around 8 refusing epogen. (2) ESRD (end stage renal disease): Code(s): N18.6 - End stage renal disease Status: Acute Assessment and Plan: Pt seen by nephrology, continue recommendations. pt due to have dialysis before discharge, today. (3) Sepsis: Code(s): A41.9 - Sepsis, unspecified organism Status: Acute Assessment and Plan: Id rounding, pt culture are negative to date, pt refuses IV abx transition to oral and discharge. (4) Hepatitis C: Code(s): B19.20 - Unspecified viral hepatitis C without hepatic coma Status: Chronic (5) Central line infection: Code(s): T80.219A - Unspecified infection due to central venous catheter, initial encounter Status: Acute Assessment and Plan: Central line is ok for use, was cleaned well here DS: Summary Hospital Course Hospital Course: Jon is a 64 year old female admitted with chest pain. Pt had labs drawn in [facility], which showed her Hb at 6. Pt also complains of mild intermittent chest pain, troponin ordered but suggested to nurse chest pain maybe due to severe anaemia. Patient had recently started dialysis after a extended COVID 19 illness at [facility]. Pt needs to have dialysis today. Pt may need central line changed out looks mucky. Pt has gangrenous finger nails secondary to prolonged covid infection. Pt due to have dialysis today. But is refusing IV abx transition to oral ABX and discharge today. Time Spent with Patient Time attestation: Total time spent providing and/or coordinating discharge services:40 minutes on day of dischrage Exam Const: General: other (thin appearing cachexic elderly lady ) Eyes: Pupils: Equal, round and reactive pupils present Neck: Neck: supple Chest: Breast/axilla inspection: Other (Central line looking clean ) Resp: Effort & Inspection: normal respiratory effort Auscultation: clear to auscultation bilaterally Cardio: Jugular venous distension: no JVD Rhythm: regular rhythm Heart sounds: S1 normal heart sound present and S2 normal heart sound present GI: Inspection: normal to inspection Auscultation: normal bowel sounds Skin: General skin exam: normal color and dry skin Neuro: Cranial nerves: Yes CN's II-XII intact bilaterally and Yes Equal, round and reactive pupils present Cognition (Neuro): normal cognition Speech: normal speech Motor exam (neuro): 5/5 motor strength present throughout Extrem: General: no pedal edema (Gangrenous digits in both hands ) Psych: Appearance: grossly normal Mental Status: mental status grossly normal DS: Data Data Completed and Pending Labs on day of discharge: Labs from last 24 hours 05/09/20 05/08/20 05/08/20 07:56 20:51 17:06 POC Capillary Glucose 128 H 163 H 171 H Preliminary micro results at discharge 05/05/20 02:51 Blood Culture - Preliminary Blood 05/05/20 02:51 Blood Culture - Preliminary Blood Discharge Plan Discharge Attending physician on discharge: Vicki Cloud Consulting providers: [facility] ; Nathaniel Rosen ; Scott Hector Discharging Clinician: Vicki Cloud Anticipated Discharge Date/Time: 05/09/20 15:00 Patient Disposition: NH Intermediate/Asst Living Activity: as tolerated Diet: renal Discharge Instructions: Continue on dialysis sessions as outpatient. Pt refuses IV antibiotics in the hospital, continue oral abx in the SNF and continue to monitor WCC. Patient Instructions: Antibiotic Form Stand Alone Forms: General Discharge Information Follow-up/Referrals: Daquan,MD Ever [Primary Care Provider] - [facility]
--- NOTE | 2020-05-09 13:08 | PM.PNNEP ---
Progress Note: A&P Assessment and Plan (1) ARELIS (acute kidney injury): Code(s): N17.9 - Acute kidney failure, unspecified Status: Acute Assessment and Plan: likely due to ATN (cardiac arrest, hemodynamic instability) and possibly COVID-19 from recent/protracted [facility] hospitalization unfortunately, requiring renal replacement therapy/dialysis at this time - no evidence of recovery patient refusing to do hemodialysis as an outpatient as well as inpatient BUT AGREED to dialysis today HOWEVER, if patient continues to refuse to do dialysis in general, may need to discuss with family correction goals of care (2) Anemia: Code(s): D64.9 - Anemia, unspecified Status: Acute Assessment and Plan: partly related to ARELIS/ARF as well as missed doses of Epogen (since she is refusing dialysis) follow trend of H/H s/p PRBC transfusion (3) Leukocytosis: Code(s): D72.829 - Elevated white blood cell count, unspecified Status: Acute Assessment and Plan: unclear etiology Infectious Disease recommendations noted follow trend of WBC (4) Hypertension: Code(s): I10 - Essential (primary) hypertension Status: Chronic Assessment and Plan: reasonable control at this time follow hemodynamics (5) Diabetes: Code(s): E11.9 - Type 2 diabetes mellitus without complications Status: Chronic Assessment and Plan: formal diagnosis(?) follow accuchecks on SSI Will continue to follow. (6) ESRD (end stage renal disease): Code(s): N18.6 - End stage renal disease Status: Chronic Subjective Date/time seen: 05/09/20 13:08 Tolerating dialysis at the time of my visit (seen on HD at 12:55PM); agreed to dialysis today only because she believes she will be discharged afterwards; no apparent distress to report; no issues/events overnight or earlier this AM. Exam Narrative: Exam Narrative: General: thin AA female in NAD Heart: normal S1 and S2; no rub Lungs: clear to auscultation Abdomen: soft, nontender, nondistended, positive bowel sounds Extremities: no cyanosis or clubbing; no edema Skin: no rash Objective Data Vital Signs Vital Signs: Vital Signs Temp Pulse Resp BP Pulse Ox 05/09/20 13:00 111 H 109/59 L 05/09/20 12:45 106 H 98/48 L 05/09/20 12:30 103 H 120/63 05/09/20 12:20 36.6 C 102 H 18 121/63 05/09/20 06:00 36.6 C 113 H 16 151/64 H 96 05/08/20 22:00 36.5 C 122 H 16 179/64 H 97 05/08/20 14:00 36.9 C 112 H 16 150/56 H 98 Intake/Output Intake/Output: Intake & Output 05/06/20 05/07/20 05/08/20 05/09/20 23:59 23:59 23:59 23:59 Intake Total 880 1060 610 360 Output Total 200 Balance 880 1060 410 360 Meds/Results Medications: Active Medications Generic Name Dose Route Start Last Admin Trade Name Freq PRN Reason Stop Dose Admin Acetaminophen 650 mg 05/07/20 17:35 05/08/20 05:01 Acetaminophen 325 Mg Tablet PO 650 mg Q8H PRN Administration Mild Pain (1-3) or Fever Amlodipine Besylate 10 mg 05/05/20 11:25 05/09/20 09:31 Amlodipine Besylate 5 Mg Tablet PO 10 mg DAILY VALDEMAR Administration Amoxicillin/Clavulanate Potassium 1 tablet 05/06/20 22:00 05/09/20 09:30 Amoxicillin/Clavulanate K 500-125 Mg Tab PO 1 tablet TID VALDEMAR Administration Aspirin 81 mg 05/05/20 11:25 05/09/20 09:31 Aspirin 81 Mg Enteric Tablet PO 81 mg DAILY VALDEMAR Administration Atorvastatin Calcium 40 mg 05/05/20 21:00 05/08/20 20:47 Atorvastatin 40 Mg Tablet PO 40 mg HS VALDEMAR Administration Gabapentin 100 mg 05/05/20 13:00 05/09/20 09:30 Gabapentin 100 Mg Capsule PO 100 mg TID VALDEMAR Administration Heparin Sodium (Porcine) 5,000 units 05/05/20 21:00 05/09/20 09:30 Heparin Sodium 5,000 Units/Ml Vial SUB-Q 5,000 units Q12HR VALDEMAR Administration Hydralazine HCl 50 mg 05/05/20 13:00 05/09/20 09:30 Hydralazine Hcl 50 Mg Tablet
[2020-05-09] MEDS: EPOETIN ALFA-EPBX 10,000 UNITS/ML VIAL 10000 UNITS IV PUSH (13:27)
--- NOTE | 2020-05-09 17:52 | PC.NURSE ---
Pt ready to discharge to [facility] via stretcher with [facility]. Pt states she does not want to go back there. She begged to be taken home and refused to go back. RN, live in caregiver, and House Sup all tried to help persuede pt that if she completed her therapy at the facility she could be strong enough to return home. Pt states that she never did anything wrong to anybody. Continued to try to comfort/reassure pt. Pt stated she wanted to kill my mother fkin self at two different times in the conversation. Pt continues to refuse. Tried to call Deion, daughter/POA, and left VM. Called Donald, the other daughter and POA. Pt refused to talk to her and daughter stated that she won't be able to help her mom at all, just to send her back to the facility. Informed Dr. Cloud of pt refusal and self-harm threats. She said to provide pt a sitter for the night, and we can readdress the situation in the morning.
--- NOTE | 2020-05-09 18:16 | PC.NURSE ---
After the ambulance left and the pt returned to bed, the pt requested a favor. She asked if I could get her a pint of something. I informed her that we do not have alcohol here in the hospital. Pt frustrated and feels like she is being treated like a child. Tried to reasses pt self harm comments with [place] suicide screen. When I told her I needed to discuss the statements she made about killing herself, she said Don't say those things. I said, Pat, you told me that twice. She stated, I was just talking shit . I informed her that she cannot make those kinds of comments. At this time pt only alert to herself as she thinks she is at home. Pt asked for the girl who is always with you . I asked if she meant my aide, Yen, and she said yes. I told her she was busy passing dinner trays and asked if there was anything I could do to help. She said no, I need her. When Yen walked by, she stopped in and the pt asked her if she could go to the store for her to picker operator some alcohol. Sitter with patient at this time to ensure pt safety. Pt resting in bed.
[2020-05-09 19:09] LABS: Glucose Point of Care 202 (65-105)
[2020-05-09] MEDS: ATORVASTATIN 40 MG TABLET PO (21:02)
[2020-05-09] MEDS: ACETAMINOPHEN 325 MG TABLET 650 MG PO (22:12)
[2020-05-09 22:23] LABS: Glucose Point of Care 140 (65-105)
--- NOTE | 2020-05-10 03:39 | PC.NURSE ---
Daylight Savings Time For Daylight Savings Time Ending in the Fall - Clocks are moved back. For Daylight Savings Time Beginning in the Spring - Clocks are moved ahead. For [facility], the time of change occurs at 0200 hrs. Time is taken from the sql server dba developer. This entry on the patient's chart recognizes the change in time reflected during documentation. Example: 2 entries for vital signs may be charted for 0200 hrs.
[2020-05-10] MEDS: traMADol HCL (*CRX) 50 MG TABLET PO (05:38)
--- NOTE | 2020-05-10 05:43 | ECG_ITS ---
Measurements Intervals [place] Rate: 105 P: 75 VA: 157 QRS: 62 QRSD: 77 T: 79 QT: 367 QTc: 486 Interpretive Statements SINUS TACHYCARDIA VOLTAGE CRITERIA FOR LVH BORDERLINE ECG Electronically Signed On 05-10-2020 8:28:09 CDT by Pineda Worthington D.O.
[2020-05-10] MEDS: NITROGLYCERIN SL 0.4 MG TABLET SUBLINGUAL (05:54)
[2020-05-10 06:00] VITALS: BP 114/61; PULSE 105; RESP 16; TEMP 36.7; O2SAT 96
[2020-05-10 06:00] LABS: Basophils Absolute Auto 0.1 K/mm3 (0.0-0.1); Basophils Percent Auto 0.3 % (0.2-1.2); Eosinophils Absolute Auto 0.3 K/mm3 (0-0.3); Eosinophils Percent Auto 1.5 % (0-4.4); Hematocrit 23.3 % (37.0-47.0); Hemoglobin 7.6 g/dL (12.0-15.0); Immature Granulocyte Absolute 0.23 K/mm3 (0.00-0.031); Immature Granulocyte Percent A 1.2 % (0-0.5); Lymphocytes Absolute Auto 1.08 K/mm3 (0.9-3.2); Lymphocytes Percent Auto 5.8 % (18.3-44.2); Mean Corpuscular HGB Conc 32.6 g/dl (32-36); Mean Platelet Volume 9.6 fl (7.4-10.4); Monocytes Absolute Auto 1.8 K/mm3 (0.1-0.6); Monocytes Percent Auto 9.5 % (2.6-8.5); Neutrophils Absolute Auto 15.3 K/mm3 (1.3-6.7); Neutrophils Percent Auto 81.7 % (45.5-73.1); Platelet Count Result 525 k/mm3 (150-375); Red Blood Count 2.71 M/mm3 (4.2-5.4); Red Cell Distribution Width 17.4 % (11.5-14.5); White Blood Count 18.7 K/mm3 (4.5-10.0)
[2020-05-10 06:28] LABS: Troponin I < 0.012 ng/mL (0.000-0.034)
[2020-05-10 06:33] LABS: Iron 17 ug/dL (37-170)
[2020-05-10 06:38] LABS: Albumin Level 2.4 g/dL (3.5-5.1); Anion Gap 3 mmol/L (8-16); Blood Urea Nitrogen 23 mg/dL (7-17); Carbon Dioxide 29 mmol/L (22-30); Chloride 104 mmol/L (98-107); Estimated CRCL calculation 11 ml/min; Estimated Glomerular Filt Rate 26; Glucose 261 mg/dL (65-105); Phosphorus 4.2 mg/dL (2.5-4.5); Potassium 4.2 mmol/L (3.4-5.0); Sodium 136 mmol/L (137-145)
[2020-05-10 06:43] LABS: Percent Iron Saturation 8 % (20-50)
[2020-05-10 08:20] LABS: Glucose Point of Care 194 (65-105)
[2020-05-10] MEDS: HEPARIN SODIUM 5,000 UNITS/ML VIAL 5000 UNITS SUB-Q (09:20)
[2020-05-10] MEDS: ASPIRIN 81 MG ENTERIC TABLET PO (09:20)
[2020-05-10] MEDS: hydrALAZINE HCL 50 MG TABLET PO (09:21)
[2020-05-10] MEDS: lisinopriL 20 MG TABLET PO (09:21)
[2020-05-10] MEDS: levETIRAcetam ORAL SOL 500 MG/5 ML UDC PO (09:21)
[2020-05-10] MEDS: amLODIPine BESYLATE 5 MG TABLET 10 MG PO (09:22)
[2020-05-10] MEDS: AMOXICILLIN/CLAVULANATE K 500-125 MG TAB 1 TABLET PO (09:22)
[2020-05-10] MEDS: GABAPENTIN 100 MG CAPSULE PO (09:22)
--- NOTE | 2020-05-10 10:08 | PM.DS ---
DS: Admitting Diagnosis Admitting Diagnosis Admitting Diagnosis: Chest pain and severe anemia DS: Discharge Diagnosis Discharge Diagnosis (1) Anemia: Code(s): D64.9 - Anemia, unspecified Status: Acute Assessment and Plan: Sp blood transfusion Hb 7.6 Epogen with dialysis (2) ESRD (end stage renal disease): Code(s): N18.6 - End stage renal disease Status: Acute Assessment and Plan: Pt seen by nephrology for continued hemodialysis 3 days weekly (3) Sepsis: Code(s): A41.9 - Sepsis, unspecified organism Status: Acute Assessment and Plan: Id rounding, pt culture are negative to date, pt refuses IV abx transition to oral and discharge. (4) Hepatitis C: Code(s): B19.20 - Unspecified viral hepatitis C without hepatic coma Status: Chronic (5) Central line infection: Code(s): T80.219A - Unspecified infection due to central venous catheter, initial encounter Status: Acute Assessment and Plan: Central line is ok for use, was cleaned well and without sign of infection (6) Cognitive impairment: Code(s): R41.89 - Other symptoms and signs involving cognitive functions and awareness Status: Acute Assessment and Plan: possibly due to underlying cerebral vascular disease (7) Cerebrovascular disease: Code(s): I67.9 - Cerebrovascular disease, unspecified Status: Acute Assessment and Plan: no acute stroke (8) Diabetes: Code(s): E11.9 - Type 2 diabetes mellitus without complications Status: Chronic Assessment and Plan: adequately controlled (9) Hypertension: Code(s): I10 - Essential (primary) hypertension Status: Chronic Assessment and Plan: adequately controlled (10) Chest pain: Qualifiers: Chest pain type: unspecified Qualified Code(s): R07.9 - Chest pain, unspecified Code(s): R07.9 - Chest pain, unspecified Status: Acute Assessment and Plan: resolved DS: Summary Hospital Course Reason for hospitalization: chest discomfort Hospital Course: patient was admitted with chest discomfort and severe anemia with hemoglobin under 7. Hemoglobin improved to 2 units packed red cells. She tolerated hemodialysis well. She was clearly experiencing dementia with some paranoia. However she became more per cooperative as her hospitalization progressed. Tolerated treatment. She was accepted at [facility] and transferred there without incident. Status at Discharge Overall status at discharge: patient is progressing back to baseline Time Spent with Patient Time attestation: Total time spent providing and/or coordinating discharge services:35 min Time spent: Greater than 30 minutes DS: Data Data Completed and Pending Labs on day of discharge: Labs from last 24 hours 05/10/20 05/10/20 05/10/20 07:57 05:50 05:50 WBC RBC Hgb Hct MCV MCH MCHC RDW Plt Count MPV Immature Gran % (Auto) Neut % (Auto) Lymph % (Auto) Kimble % (Auto) Eos % (Auto) Baso % (Auto) Lymph # (Auto) Kimble # (Auto) Eos # (Auto) Baso # (Auto) Abs Immat Gran (auto) Absolute Neuts (auto) Absolute Nucleated RBC Nucleated RBC % Sodium Potassium Chloride Carbon Dioxide Anion Gap BUN Creatinine Estim Creat Clear Calc Estimated GFR Glucose POC Capillary Glucose 194 H Calcium Phosphorus Iron 17 L TIBC 203 L % Saturation 8 L Ferritin 361.00 H Troponin I < 0.012 Albumin 05/10/20 05/10/20 05/09/20 05:50 05:50 21:06 WBC 18.7 H RBC 2.71 L Hgb 7.6 L Hct 23.3 L MCV 86.0 MCH 28.0 MCHC 32.6 RDW 17.4 H Plt Count 525 H MPV 9.6 Immature Gran % (Auto) 1.2 H Neut % (Auto) 81.7 H Lymph % (Auto) 5.8 L Kimble % (Auto) 9.5 H Eos % (Auto) 1.5 Baso % (Auto) 0.3
== END 2020-05-10 11:30 | DRG 314 ==
LOC: ANHED 05:16 → ANH3MEDSUR 11:26
PROVIDERS: Family Medicine; Internal Medicine Nephrology; Admitting Provider Internal Medicine; Emergency Provider Emergency Medicine; PCP Internal Medicine; Visit Provider Family Medicine
DX: T80.211A Bloodstream infection due to central venous catheter, initial encounter (principal); A41.9 Sepsis, unspecified organism; N17.0 Acute kidney failure with tubular necrosis; N18.6 End stage renal disease; I12.0 Hypertensive chronic kidney disease with stage 5 chronic kidney disease or end stage renal disease; R64 Cachexia; Z68.1 Body mass index [BMI] 19.9 or less, adult; Z20.822 Contact with and (suspected) exposure to COVID-19; R91.8 Other nonspecific abnormal finding of lung field; B94.8 Sequelae of other specified infectious and parasitic diseases; E11.22 Type 2 diabetes mellitus with diabetic chronic kidney disease; D64.9 Anemia, unspecified; F03.90 Unspecified dementia, unspecified severity, without behavioral disturbance, psychotic disturbance, mood disturbance, and anxiety; F22 Delusional disorders; E78.5 Hyperlipidemia, unspecified; E11.42 Type 2 diabetes mellitus with diabetic polyneuropathy; B18.2 Chronic viral hepatitis C; D72.829 Elevated white blood cell count, unspecified; Z53.29 Procedure and treatment not carried out because of patient's decision for other reasons; Z86.73 Personal history of transient ischemic attack (TIA), and cerebral infarction without residual deficits; Z99.2 Dependence on renal dialysis
CPT/HCPCS: 36415; 36430; 51701; 71045; 80048; 80053; 80069; 81001; 82565; 82728; 82948; 83540; 83550; 84484; 85014; 85018; 85025; 85027; 85610; 85730; 86850; 86900; 86901; 86923; 87040; 87086; 87340; 93005; 97110; 97116; 97161; 97165; 97530; 99285; A9270; C9803; G0257; J0696; J1644; J1815; J2543; J3370; J7030; J7050; P9016; Q5106; U0003; U0005